=== PATIENT | male | born 1965 | race Caucasian/White ===

== ENCOUNTER 2020-05-22 10:20 | Inpatient (IN) ==
--- NOTE | 2020-05-22 10:27 | Emergency Department Note ---
Impression & Plan Chest pain, Syncope, Bradycardia ED Provider Note NAME: NISHA [id number] TERENCE AGE: 54 SEX: M : 1965 ARRIVES VIA: Ambulance INFORMANT: Patient, ED PROVIDER(S): Derik Gipson DO CHIEF COMPLAINT: Chest pain HPI: The patient is a 54-year-old male who has a history of coronary artery bypass grafting as well as LA in the past who presented to the emergency department for an evaluation of chest pain. The patient describes chest pain as well as near syncope. This occurred this morning. He was given aspirin and nitroglycerin prior to arrival. He is currently at [facility] and presented to the emergency department via ambulance. The patient does have a history of chronic back pain. He states that he had a syncopal episode 2 days ago. He denies having any nausea or vomiting. He denies having any lower extre mity swelling. The patient at this time has no chest pain but does complain of his chronic back pain and is unsure if this is because of the syncopal episode. The patient states otherwise he has been compliant with his outpatient medication regimen. He denies having any fevers. He has no cough. ROS: See above HPI for pertinent positives & negatives. A total of 10 systems reviewed and were otherwise negative. PAST MEDICAL HISTORY: See Below PAST SURGICAL HISTORY: See Below FAMILY HISTORY: See Below SOCIAL HISTORY: See Below HOME MEDICATIONS: See Below ALLERGIES: See Below VITALS: See Below PHYSICAL EXAMINATION: GENERAL: Patient is awake alert in no acute distress patient is resting comfortably and showing no signs of anxiety EYES: The conjunctivae are clear. The pupils are round and reactive. EARS, NOSE, MOUTH AND THROAT: The nose is without any evidence of any deformity. NECK: The neck is nontender and supple. RESPIRATORY: Normal respiratory effort is noted there is no evidence of wheezing rhonchi or rales CARDIOVASCULAR: Regular rate and rhythm noted there no murmurs rubs or gallops normal S1 normal S2. GASTROINTESTINAL: The abdomen is soft. Abdomen is nontender. MUSCULOSKELETAL/EXTREMITIES: There is no evidence of gross deformity full range of motion is noted in the hips and shoulders. SKIN: There is no obvious evidence of any rash. There are no petechiae, pallor or cyanosis noted. NEUROLOGIC: Patient is awake alert and oriented x3 strength is symmetric patellar reflexes are 2+ bilaterally MEDICAL DECISION MAKING: The patient is a 54-year-old male who presented to the emergency department for an evaluation of chest pain. The patient describes anterior chest pain. This was associated with syncope a few days ago. The patient does have a history of pulmonary venous thromboembolic disease as well as coronary artery disease and bypass. I discussed the patient's laboratory and radiographic studies with him. His EKG shows no acute ischemic changes but we have no previous for comparison. His troponin is negative despite having ongoing symptoms since this morning. Because the patient has no direct follow-up I discussed this case with the on- call [facility] hospitalist. They will evaluate the patient in the emergency department for further management and disposition. Triage Nursing notes reviewed. Prior medical records reviewed Vital Signs: reviewed and remarkable for bradycardia Differential diagnosis: Cardiac ischemia, aortic dissection, pulmonary embolism, pneumothorax, pneumonia, pericarditis, myocarditis, esophageal rupture, GERD, cholecystitis, pancreatitis, musculoskeletal, as well as other pathologies. ER treatment provided: See below Diagnostics interpreted by me: ECG: EKG was obtained in the emergency department. My interpretation is sinus bradycardia at 44 bpm. There is no ectopy. There were no acute ST segment abnormalities noted. There is no previous tracing for comparison. Cardiac Monitoring: An order was placed for continuous cardiac monitoring. The monitor shows a rate of 52 bpm with sinus bradycardia rhythm. Laboratory studies: As stated above and show below. Imaging studies: See below Consultation(s): 1140: I discussed this case with Dr. Leung who is on-call for the [facility]. They will evaluate the patient in the emergency department for further management and disposition. ] Past Med/Surg History Medical History (Updated 05/22/20 @ 12:05 by Derik Gipson DO) Atrial fibrillation History of heart attack Hypertension Injury of lumbar spine Surgical History (Updated 05/22/20 @ 12:01 by Steffen Leung) Hx of CABG 4-vessel; [place]; Sep 2019 Social History Smoking Status: Former smoker Preferred Language: Hebrew Feels Safe at Home: Yes Allergies Allergies Allergy/AdvReac Type Severity Reaction Status Date / Time No Known Allergies Allergy Unverified 05/22/20 11:23 Home Meds Home Medications Medication Instructions Recorded Confirmed albuterol sulfate [Ventolin HFA] 2 puff INHALATION QID PRN 05/22/20 05/22/20 aspirin 81 mg PO QAM 05/22/20 05/22/20 furosemide [Lasix] 20 mg PO QAM 05/22/20 05/22/20 lisinopril 2.5 mg PO QAM 05/22/20 05/22/20 metoprolol tartrate [Lopressor] 50 mg PO BID 05/22/20 05/22/20 potassium chloride 20 meq PO DAILY 05/22/20 05/22/20 rivaroxaban [Xarelto] 20 mg PO QAM 05/22/20 05/22/20 Results & Data (ED) Vital Signs Vital Signs - 24 hr 05/22/20 10:23 05/22/20 10:36 05/22/20 10:42 Temperature 36.6 C Temperature Source Oral Pulse Rate 47 L 48 L 42 L Pulse Rate from SpO2 Sensor 45 L Respiratory Rate 16 18 16 Respiratory Effort / Characteristics Non-Labored Spontaneous Blood Pressure 119/61 119/61 Blood Pressure Mean 66 80 Blood Pressure Position Lying Pulse Oximetry 98 98 98 Oxygen Delivery Method Room Air Room Air Sepsis Recent Fever Within 48 Hours No Sepsis New/Unexplained Change in Mental Status No Sepsis Action Taken by Nursing No Action Required Home Medications Current Medication List: was personally reviewed by me Laboratory Data Attestation: I reviewed the patient's lab results. Result diagrams: 05/22/20 10:30 05/22/20 10:30 Lab Results 05/22/20 05/22/20 05/22/20 Range/Units 10:30 10:30 10:30 WBC 7.17 (4.8-10.8) K/uL RBC 4.56 L (4.7-6.1) M/uL Hgb 14.1 (14.0-18.0) g/dL Hct 43.2 (42-52) % MCV 94.7 (80-100) fL MCH 30.9 (25-34) pg MCHC 32.6 (32-36) g/dL RDW Std Deviation 44.1 (36.4-46.3) fL RDW Coeff of Katherine 12.7 (11.5-14.5) % Plt Count 341 (130-400) K/uL MPV 9.3 (7.4-10.4) fL Immature Gran % (Auto) 0.0 % Neut % (Auto) 68.0 % Lymph % (Auto) 22.9 % [place] % (Auto) 7.0 % Eos % (Auto) 1.7 % Baso % (Auto) 0.4 % Neut # (Auto) 4.88 (1.4-6.5) K/uL Lymph # (Auto) 1.64 (1.2-3.4) K/uL [place] # (Auto) 0.50 (0.11-0.59) K/uL Eos # (Auto) 0.12 (0-0.5) K/uL Baso # (Auto) 0.03 (0-0.2) K/uL Immature Gran # (Auto) 0.00 (0.00-0.02) K/uL PT 14.8 H (9.0-12.0) Seconds INR 1.4 H (0.9-1.1) APTT 39.7 H (21.0-31.0) Seconds PTT Ratio 1.4 D-Dimer < 190 (0-500) ug/L FEU Sodium 141 (136-145) mmol/L Potassium 4.4 (3.5-5.1) mmol/L Chloride 108 H (98-107) mmol/L Carbon Dioxide 30 (21-32) mmol/L Anion Gap 3.0 (3-11) BUN 12 (7-18) mg/dl Creatinine 0.97 (0.6-1.4) mg/dl Est Cr Clr Drug Dosing 111.9 ml/min Est GFR ( Amer) 101.4 Est GFR (Non-Af Amer) 87.5 BUN/Creatinine Ratio 12.6 (10-20) Glucose 95 (70-99) mg/dl Calcium 8.8 (8.5-10.1) mg/dl Total Bilirubin 0.5 (0.2-1) mg/dl AST 22 (15-37) U/L ALT 27 (12-78) U/L Alkaline Phosphatase 98 (45-117) U/L Troponin I < 0.015 (0-0.045) ng/ml Total Protein 6.7 (6.4-8.2) gm/dl Albumin 3.4 (3.4-5.0) gm/dl Globulin 3.3 (2.5-4.0) gm/dl Albumin/Globulin Ratio 1.0 (0.9-2) Lipase 78 (73-393) U/L Specimen Hemolysis Administered Medications Discontinued Medications Sodium Chloride (Nss) 500 mls @ 999 mls/hr IV .Q31M POPEYE Stop: 05/22/20 11:00 Last Infusion: 05/22/20 11:21 Dose: 0 mls/hr Documented by: [id number] Admin: 05/22/20 10:45 Dose: 999 mls/hr Documented by: [id number] Imaging Data Radiologist's Impression: XR chest 1V portable CLINICAL HISTORY: Atypical chest pain COMPARISON STUDY: No previous studies for comparison. FINDINGS: The heart is normal in size. There are postsurgical changes of a midline sternotomy. There is a left atrial band occluder device present. There is a metallic density projected over the mid dorsal spine, likely related to spinal hardware. There is no failure. There is no focal pulmonary consolidation. There are minor left basilar atelectatic changes. There is minimal blunting of the left lateral costophrenic angle[ IMPRESSION: 1. No evidence of failure. No evidence of focal pulmonary consolidation. Equivocal trace left pleural effusion. ACT 112: Negative or not required by law. Electronically signed by: Billy Lubin M.D. 05/22/2020 11:02 AM Dictated: 05/22/20 110 Transcribed: 05/22/201101 Blood Pressure Blood Pressure Findings: Normal blood pressure Discharge Plan Visit Data Chief Complaint: Chest Pain Stated Complaint: chest pain ED Provider: Derik Gipson Discharge Problem: Chest pain, Syncope, Bradycardia Patient Disposition: Being Evaluated by Hospitalist Condition: Good Forms Stand Alone Forms: My [facility] Prescriptions Prescriptions: No Action potassium chloride 10 mEq Tablet Extended Release 20 meq PO DAILY RF: 0 aspirin 81 mg Tablet,Delayed Release (Dr/Ec) 81 mg PO QAM RF: 0 metoprolol tartrate [Lopressor] 50 mg Tablet 50 mg PO BID RF: 0 furosemide [Lasix] 20 mg Tablet 20 mg PO QAM RF: 0 albuterol sulfate [Ventolin HFA] 90 mcg/actuation Hfa Aerosol Inhaler 2 puff INHALATION QID PRN (Reason: Shortness Of Breath) RF: 0 lisinopril 2.5 mg Tablet 2.5 mg PO QAM RF: 0 Xarelto 20 mg Tablet 20 mg PO QAM RF: 0 Referrals Referrals: [place] [Primary Care Provider] -
[2020-05-22] MEDS ORDERED: SODIUM CHLORIDE 0.9% 500 ML IV SCH (10:30)
[2020-05-22 10:45] LABS: Basophils # (auto) 0.03 K/uL (0-0.2); Basophils % (auto) 0.4 %; Eosinophils # (auto) 0.12 K/uL (0-0.5); Eosinophils % (auto) 1.7 %; Hematocrit (blood only) 43.2 % (42-52); Hemoglobin 14.1 g/dL (14.0-18.0); Lymphocytes # (auto) 1.64 K/uL (1.2-3.4); Lymphocytes % (auto) 22.9 %; Mean Corpuscular Hemoglobin 30.9 pg (25-34); Mean Corpuscular Hgb Conc 32.6 g/dL (32-36); Mean Corpuscular Volume 94.7 fL (80-100); Mean Platelet Volume 9.3 fL (7.4-10.4); Neutrophils # (auto) 4.88 K/uL (1.4-6.5); Platelet Count 341 K/uL (130-400); RDW Coefficient of Variation 12.7 % (11.5-14.5); RDW Standard Deviation 44.1 fL (36.4-46.3); Red Blood Count 4.56 M/uL (4.7-6.1); White Blood Count 7.17 K/uL (4.8-10.8)
[2020-05-22 10:59] LABS: D Dimer < 190 ug/L FEU (0-500); INR 1.4 (0.9-1.1); Partial Thromboplastin Ratio 1.4; Partial Thromboplastin Time 39.7 Seconds (21.0-31.0); Prothrombin Time 14.8 Seconds (9.0-12.0)
[2020-05-22 11:04] LABS: Alanine Aminotransferase 27 U/L (12-78); Albumin Level 3.4 gm/dl (3.4-5.0); Aspartate Aminotransferase 22 U/L (15-37); BUN Creatinine Ratio 12.6 (10-20); Blood Urea Nitrogen 12 mg/dl (7-18); Calcium 8.8 mg/dl (8.5-10.1); Carbon Dioxide 30 mmol/L (21-32); Chloride 108 mmol/L (98-107); Creatinine Clr Calc Pharmacy 111.9 ml/min; Est GFR (African American) 101.4; Est GFR (Non-African American) 87.5; Glucose 95 mg/dl (70-99); Lipase 78 U/L (73-393); Potassium 4.4 mmol/L (3.5-5.1); Sodium 141 mmol/L (136-145)
--- NOTE | 2020-05-22 11:04 | XRay Report ---
XR chest 1V portable CLINICAL HISTORY: Atypical chest pain COMPARISON STUDY: No previous studies for comparison. FINDINGS: The heart is normal in size. There are postsurgical changes of a midline sternotomy. There is a left atrial band occluder device present. There is a metallic density projected over the mid jazz rui spine, likely related to spinal hardware. There is no failure. There is no focal pulmonary consol idation. There are minor left basilar atelectatic changes. There is minimal blunting of the left late ral costophrenic angle[ IMPRESSION: 1. No evidence of failure. No evidence of focal pulmonary consolidation. Equivocal trace left pleural effusion. ACT 112: Negative or not required by law. Electronically signed by: Billy Lubin M.D. 05/22/2020 11:02 AM
[2020-05-22 11:22] LABS: Alkaline Phosphatase 98 U/L (45-117); Bilirubin,Total 0.5 mg/dl (0.2-1); Globulin 3.3 gm/dl (2.5-4.0); Total Protein 6.7 gm/dl (6.4-8.2); Troponin I < 0.015 ng/ml (0-0.045)
--- NOTE | 2020-05-22 12:14 | History & Physical Report ---
Date of Service May 22, 2020 Assessment & Plan (1) Syncope: Patient with numerous episodes of near-syncope or syncope. He has had event monitors for such with documented episodes of a.fib as well as pauses. He underwent cardioversion in [place] for a.fib a few months ago. Pacemaker was discussed in the past. He has marked sinus bradycardia at time of presentation today. Will hold his beta macy, check TSH, and obtain echo. Place on telemetry. Obtain [facility] cardiology consultation for their opinion. Check carotid duplex study for completeness. Check orthostatic BPs. (2) Chest pain: Description of his chest discomfort is atypical for ischemic chest pain. He describes the chest discomfort in the context of having fluttering/palpitations. His EKG and troponin are negative at time of admission. Will obtain serial cardiac enzymes, check echo, and place on telemetry. D-dimer is normal and patient has had "forced" compliance with xarelto (being in [facility]) thus VTE is unlikely. (3) Bradycardia: Sinus. Likely that beta macy is contributing. HOLD metoprolol. Check TSH. Place on monitors - observe for pauses, etc. (4) Atrial fibrillation: History of such. s/p MAZE procedure early 2019. s/p elective cardioversion summer 2019 in [place]. Is in sinus rhythm at time of admission today. Holding beta macy due to bradycardia. Cont xarelto. Telemetry monitoring. (5) Hypertension: Cont OCHOA. Hold BB. Cont lasix. (6) History of heart attack: multiple events dating back 10-15 years. s/p CABG early 2019 in [place], [place]. ER attempted to obtain records from the hospital in [place] without success. That hospital ([facility]) stated there was no record of him being in their hospital. Cont asa. Cont OCHOA. Check lipids in am - strongly consider high-intensity statin. (7) Sinus pause: Patient reports documentation of these in the past year but uncertain why permanent pacemaker was not placed. Suspect that his frequent moving and traveling has not allowed optimal care of his cardiac issues. Due to bradycardia we will HOLD beta macy, obtain cardiology consult, check TSH, and place on monitors. (8) H/O maze procedure: early 2019 (9) History of cardiac arrest: (10) Hx of CABG: early 2019 4-vessel (11) History of pulmonary embolus (PE): noted cont xarelto 20mg daily (12) Shelter as place of occurrence of external cause: currently incarcerated at [facility] for DUI (meth use? other?) (13) DVT prophylaxis: xarelto daily History of Present Illness Chief Complaint: dizziness, near-syncope, chest pain Primary Care Provider: [facility] 54yo male with CAD s/p CABG in 2019, PAF s/p MAZE procedure in 2019, and HTN who presents from [facility] with near-syncopal/syncopal episode this am at the [facility]. Also, about 2 days ago, he had a full syncopal episode while he went from a seated to standing position. He is uncertain how long he had loss of consciousness with either event. He noted palpitations/fluttering of the heart prior to the event this am. He had a minimal amount of dull pain over the left chest with it. He was given aspirin and nitro SL this am at the [facility] with improved chest pain. This am when he felt poorly/dizzy he was taken to the [facility]. There was questionable loss of consciousness while he was on the [facility] stretcher. The nurses told him there were "pauses" / irregular heart beating when they lis tened but NOT a.fib. When patient arrived at [facility] he was in sinus bradycardia. Patient states he had 4-vessel CABG with MAZE procedure at [facility] in [facility] in early 2019. He was in [place] because [facility] while he was living [facility] [place] - that "[place] is the best place to have it [CABG] done." While hospitalized he was told he was having pauses in the setting of a.fib? and a pacer/ICD was recommended but instead he was sent home with what sounds like a LifeVest (?). He did not mention v-tach to me during the admission assessment, however. He admits to being noncompliant with the LifeVest following discharge. He ultimately moved from [place] to [place], [place]. He stated "I always loved [place] so that's why I went there." When he established with a [employer] in [place] he was in a.fib and he underwent elective cardioversion. He wore a 2-week event monitor prior to the cardioversion. He had frequent a.fib episodes according to the [employer]. The [employer] in [place] is through the [place] system ([facility]?). Since the cardioversion several months he has had 8-10 episodes of near-syncope or syncope. Allergies Allergy/AdvReac Type Severity Reaction Status Date / Time No Known Allergies Allergy Unverified 05/22/20 11:23 Home Medications Home Medications Medication Instructions Recorded Confirmed Type albuterol sulfate [Ventolin HFA] 2 puff INHALATION QID PRN 05/22/20 05/22/20 History aspirin 81 mg PO QAM 05/22/20 05/22/20 History furosemide [Lasix] 20 mg PO QAM 05/22/20 05/22/20 History lisinopril 2.5 mg PO QAM 05/22/20 05/22/20 History metoprolol tartrate [Lopressor] 50 mg PO BID 05/22/20 05/22/20 History potassium chloride 20 meq PO DAILY 05/22/20 05/22/20 History rivaroxaban [Xarelto] 20 mg PO QAM 05/22/20 05/22/20 History Past Med/Surg History Medical History Atrial fibrillation Degenerative joint disease (DJD) of lumbar spine History of cardiac arrest 2006 - History of heart attack x 5; 2006 s/p 2 stents; 2006 (2 weeks after stents); 2008, 2011, 2019? 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 Beliefs That Will Affect Care: None Current Living Situation: Other Current Living Situation Comment: Shelter Other Information That Helps Us Care for You: No Feels Safe at Home: Yes Safety Concerns: Feels Safe At This Time Assistive Devices: None Review of Systems Constitutional: no fever and no anorexia Eyes: + worsening vision (during the near-syncope spells ) Ear, Nose, Mouth, Throat: no nasal congestion, no sore throat and no dysphagia Respiratory: + dyspnea on exertion (since his surgery ); no cough and no dyspnea Cardiovascular: as per Subjective / HPI, + chest pain, + palpitations, + lightheadedness and + syncope Gastrointestinal: + nausea (with the episode at [facility] today ); no abdominal pain, no blood in stools and no melena Genitourinary: no dysuria Musculoskeletal: + back pain (chronic ) Integumentary: no rash Neurologic: + paresthesia (hands - from neck issues) Psychiatric: no depression Endocrine: no diabetes Physical Exam Constitutional: well developed and well nourished; no acute distress and no altered mental status Eyes: PERRL ENMT: external ear and nose normal, oropharynx normal Neck: trachea midline, no thyromegaly Respiratory: normal respiratory effort, lungs clear to auscultation Cardiovascular: Rate/Rhythm: regular rhythm and + bradycardic Heart Sounds: normal S1 and normal S2; no murmur Vessels: posterior tibial pulses present and dorsalis pedis pulses present; no JVD Extremities: no edema Chest (Breasts): Additional Comments: vertical scar through middle of sternum Gastrointestinal (Abdomen): normal bowel sounds, soft, nontender, no hepatosplenomegaly Musculoskeletal: no cyanosis or clubbing, extremities motor strength 5/5 Skin: no rashes, warm and dry Neurologic: deep tendon reflexes 2+ bilaterally and moves all extremities Psychiatric: Orientation: alert and oriented x 3 Lymphatic: no cervical lymphadenopathy Results & Data Results & Data ([facility]) Vital Signs (Past 12 Hours) Vital Signs Temp Pulse Resp BP Pulse Ox 05/22/20 10:42 42 L 16 98 05/22/20 10:36 36.6 C 48 L 18 119/61 98 05/22/20 10:23 47 L 16 119/61 98 Laboratory Results Laboratory Results - last 24 hr 05/22/20 05/22/20 05/22/20 10:30 10:30 10:30 WBC 7.17 RBC 4.56 L Hgb 14.1 Hct 43.2 MCV 94.7 MCH 30.9 MCHC 32.6 RDW Std Deviation 44.1 RDW Coeff of Katherine 12.7 Plt Count 341 MPV 9.3 Immature Gran % (Auto) 0.0 Neut % (Auto) 68.0 Lymph % (Auto) 22.9 [place] % (Auto) 7.0 Eos % (Auto) 1.7 Baso % (Auto) 0.4 Neut # (Auto) 4.88 Lymph # (Auto) 1.64 [place] # (Auto) 0.50 Eos # (Auto) 0.12 Baso # (Auto) 0.03 Immature Gran # (Auto) 0.00 PT 14.8 H INR 1.4 H APTT 39.7 H PTT Ratio 1.4 D-Dimer < 190 Sodium 141 Potassium 4.4 Chloride 108 H Carbon Dioxide 30 Anion Gap 3.0 BUN 12 Creatinine 0.97 Est Cr Clr Drug Dosing 111.9 Est GFR ( Amer) 101.4 Est GFR (Non-Af Amer) 87.5 BUN/Creatinine Ratio 12.6 Glucose 95 Calcium 8.8 Total Bilirubin 0.5 AST 22 ALT 27 Alkaline Phosphatase 98 Troponin I < 0.015 Total Protein 6.7 Albumin 3.4 Globulin 3.3 Albumin/Globulin Ratio 1.0 Lipase 78 Specimen Hemolysis Diagnostic Findings EKG - my reading - sinus rosario, RBBB, NS ST changes inferior leads CXR - no infiltrates Code Status & VTE Plan Code Status full VTE Prophylaxis Plan VTE Prophylaxis will be ordered: Yes PG Care Time/CCT Total # of Minutes Spent Total Time Spent with Patient: Total time spent is greater than 50% in coordination of care (as documented) at patient's floor/unit and/or counseling patient: Coding Level of Care Code 18609 OBS Care - Level 3 Diagnoses Syncope R55 Syncope type: unspecified Chest pain R07.9 Chest pain type: unspecified Bradycardia R00.1 Atrial fibrillation I48.0 Atrial fibrillation type: paroxysmal Hypertension I10 Hypertension type: essential hypertension History of heart attack I25.2 Sinus pause I45.5 H/O maze procedure Z98.890 History of cardiac arrest Z86.74 Hx of CABG Z95.1 History of pulmonary embolus (PE) Z86.[address] of occurrence of external cause Y92.149 DVT prophylaxis Z29.9 (1) Atrial fibrillation Atrial fibrillation type: paroxysmal Qualified Code(s): I48.0 - Paroxysmal atrial fibrillation (2) Syncope Syncope type: unspecified Qualified Code(s): R55 - Syncope and collapse (3) Chest pain Chest pain type: unspecified Qualified Code(s): R07.9 - Chest pain, unspecified (4) Hypertension Hypertension type: essential hypertension Qualified Code(s): I10 - Essential (primary) hypertension
[2020-05-22] MEDS ORDERED: ALBUTEROL HFA 8 GM INHALER INH PRN (14:34)
[2020-05-22] MEDS ORDERED: NITROGLYCERIN SL 0.4 MG/TAB TAB SL PRN (14:34)
[2020-05-22] MEDS ORDERED: ACETAMINOPHEN 325 MG TAB PO PRN (14:34)
[2020-05-22] MEDS ORDERED: ONDANSETRON INJ 2 MG/ML 2 ML VIAL IV PRN (14:34)
--- NOTE | 2020-05-22 14:46 | XCELERA ---
[id number]
[2020-05-22 15:03] LABS: Magnesium 2.2 mg/dl (1.8-2.4); Thyroid Stimulating Hormone 1.69 uIu/ml (0.300-4.500)
--- NOTE | 2020-05-22 16:04 | Ultrasound Report ---
CAROTID ARTERY ULTRASOUND CLINICAL HISTORY: recurrent syncope; eval ICA stenosis COMPARISON STUDY: None. TECHNIQUE: Real-time, grayscale, and color Doppler sonography of the carotid and vertebral arteries w as performed. Images were viewed in the transverse and longitudinal planes. FINDINGS: There is mild atherosclerotic plaque. Velocity measurements are listed below. COMMON CAROTID PEAK SYSTOLIC VELOCITY (CM/S): RIGHT 101 LEFT 90 ICA PEAK SYSTOLIC VELOCITY (CM/S): RIGHT 83 LEFT 100 Systolic ratios between internal to common carotid arteries are normal. Antegrade flow is seen in the vertebral arteries. The external carotid arteries are patent. Blood pressure in the right arm measured 124/57. Blood pressure in the left arm measured 128/53. IMPRESSION: Mild atherosclerotic plaque without evidence for a hemodynamically significant stenosis. ACT 112: Negative or not required by law. Electronically signed by: Austin Bernal M.D. 05/22/2020 4:03 PM
--- NOTE | 2020-05-22 16:24 | Cardiology Consultation ---
Date of Consultation May 22, 2020 Assessment & Plan (1) Syncope: Patient appear to have had witnessed syncope. It seems that he has had similar episodes in the past and has undergone outpatient monitoring. Will attempt to obtain the records from [place] with respect to his recent monitoring. Think this several possible etiologies for his events. Clearly sinus arrest or symptomatic bradycardia would cause his symptoms. He may also be having conversion pauses. He is currently taking metoprolol and this can be held. It is very possible that heals on metoprolol for tachy-rosario syndrome or elevated ventricular rates during episodes of atrial fibrillation. Any of the circumstances would warrant implantation of a permanent pacemaker. He also has a history of ischemic heart disease. Reportedly has a history of cardiac arrest in the setting of an MA and was prescribed a life vest at 1 point. He describes a fluttering sensation associated with these episodes. It is possible that he has ventricular arrhythmias associated with syncope. Is preserved LV systolic function puts him in a favorable category. Based on his normal LV function I do not believe he requires electrophysiologic testing for VT. At this point I would agree with telemetry monitoring. Will attempt to obtain the results of his prior outpatient monitoring. We will hold his metoprolol. (2) Atrial fibrillation: He appears to have a long history of atrial fibrillation. He reports being cardioverted a couple of months ago. He may also have undergone a Maze procedure. He did undergo occlusion of left atrial appendage based on his x- ray. Whether he has a history of tachy-rosario syndrome is unclear. He is unlikely to maintain sinus rhythm indefinitely. At this point I think we will hold his metoprolol, monitor him for atrial fibrillation and associated conversion pauses he continue his anticoagulation (3) CAD (coronary artery disease): He has a long history of coronary artery disease in both percutaneous and surgical revascularization. No current symptoms suggestive of angina or coronary insufficiency. He appears to be doing quite well in cardiac rehab. Given his history of myocardial infarction he would benefit from continued use of metoprolol, but I think this can be held temporarily. He will continue daily aspirin and lisinopril. He should be on high-dose statin therapy, either atorvastatin or rosuvastatin (4) Shortness of breath: This is a curious symptom. May be related to primary lung disease. He states that he has had some shortness of breath for an extended period of time. This not appear to improve with revascularization. Is not appear to be related to pulmonary edema or angina. Does not reliably reproduced by any specific activity but does limit his activity at times. I think this is more likely a primary pulmonary process than diastolic failure or ischemia. History of Present Illness Reason for Consultation: Syncope, bradycardia Requesting Physician: Xochitl Attending Physician: Steffen Leung History of Present Illness The patient is a 54-year-old gentleman with a history of coronary artery disease and atrial fibrillation who is currently incarcerated. Patient been incarcerated for approximately 2 weeks. Several days ago and again today the patient had episodes of dizziness and witnessed syncope. Patient stated that 3 days ago while in his cell he found himself on the floor with a minor injury to his back. He believes this was a result of syncope. He cannot recall any spe cific activity leading up to the event. He did report a sense of a fluttering leading up to the event. He does not remember much else. Today he also noticed a fluttering. He had some associated dizziness was brought to the [facility] where apparently he was noted to lose consciousness briefly. The patient has an extensive past medical history. He reports having percutaneous intervention to his coronary arteries as remotely is 2006. He had frequent episodes of chest pain infrequent interventions until a bypass surgery the he reports being performed earlier this year in [facility]. He also reports having 10 years of atrial fibrillation. It seems that at the time of his bypass surgery he underwent a Maze procedure and left atrial appendage occlusion. Again, this is by report. He recently established with a b and b gang worker in [place]. He states that he was in atrial fibrillation and underwent a cardioversion. He believes this cardioversion has allowed him to maintain sinus rhythm for approximately 2 months. Due to episodes of dizziness and syncope previously he has worn outpatient monitors. He stated that at times he was told his heart stops for a few seconds. He reported "dying on the table during 1 of his remote heart attacks. He also appears to have been prescribed a LifeVest subsequent to his bypass surgery. Currently he is feeling well. He is not currently describing symptoms of dizziness. He has improved his activity over the past few months by participating in cardiac rehab. He does state that he frequently has SOB. This appears to refer to dyspnea on exertion. This occurs with moderate activity. Is not appear to be limiting when he is doing his cardiac rehab or other mild activities. Does not appear to involve orthopnea although lately he has had difficulty lying flat due to his sternotomy. No chest pain since his bypass surgery. Allergies Allergy/AdvReac Type Severity Reaction Status Date / Time No Known Allergies Allergy Unverified 05/22/20 11:23 Home Medications Home Medications Medication Instructions Recorded Confirmed Type albuterol sulfate [Ventolin HFA] 2 puff INHALATION QID PRN 05/22/20 05/22/20 History aspirin 81 mg PO QAM 05/22/20 05/22/20 History furosemide [Lasix] 20 mg PO QAM 05/22/20 05/22/20 History lisinopril 2.5 mg PO QAM 05/22/20 05/22/20 History metoprolol tartrate [Lopressor] 50 mg PO BID 05/22/20 05/22/20 History potassium chloride 20 meq PO DAILY 05/22/20 05/22/20 History rivaroxaban [Xarelto] 20 mg PO QAM 05/22/20 05/22/20 History Patient History Medical History Atrial fibrillation Degenerative joint disease (DJD) of lumbar spine History of cardiac arrest 2006 - History of heart attack x 5; 2006 s/p 2 stents; 2006 (2 weeks after stents); 2008, 2011, 2019? History of pulmonary embolus (PE) Hypertension Syncope Surgical History H/O maze procedure Sep 2019 Hx of CABG 4-vessel; [place]; Sep 2019 Family History Mother Coronary heart disease Father Hx of CABG Brother Coronary heart disease Social History Smoking Status: Former smoker Tobacco Type: Cigarettes packs per day: 1; Years Smoked: 20; Smoking End Date: 2017; Second Hand Exposure: No; Do You Dip or Chew Tobacco: No; Tobacco Cessation Education Requested by Patient: No Hx Alcohol Use: No Hx Substance Use: No Preferred Language: Mosotho Communication Ability: Effective Steel Molder Required: No Beliefs That Will Affect Care: None Current Living Situation: Other Current Living Situation Comment: Long-Term Other Information That Helps Us Care for You: No Feels Safe at Home: Yes Safety Concerns: Feels Safe At This Time Assistive Devices: None Review of Systems Review of Systems: All systems reviewed & are unremarkable except as noted in HPI & below Physical Exam Physical Exam: The patient is alert and oriented. Mood and affect appeared normal. He answered all questions appropriately. HEENT: Pupils are equal and reactive to light and accommodation. Extraocular movements are intact. The sclerae are anicteric. Neuro: Cranial nerves intact Neck: Patient's neck is supple. He has palpable carotid pulses bilaterally without bruits on auscultation. There is no evidence of jugular venous distention. The thyroid is not enlarged. Lungs: Clear to auscultation bilaterally. He has good air movement without use of accessory muscles. No rales wheezes or rhonchi. Cardiac: Heart demonstrates a slow rate and regular rhythm. Normal S1 and S2. No murmurs on examination. Pulses: The patient has palpable radial pulses bilaterally that are equal in intensity Extremities: There was no evidence of hypoperfusion. There is no cyanosis or clubbing. There is no edema. Skin: I did not appreciate any rashes on examination today. Results & Data ([facility]) Vital Signs (Past 12 Hours) Vital Signs Temp Pulse Pulse Resp BP BP Pulse Ox 05/22/20 14:45 37 C 50 L 16 128/53 L 97 05/22/20 13:09 61 20 117/64 99 05/22/20 13:07 46 L 16 112/47 L 98 05/22/20 13:06 43 L 16 124/57 L 98 05/22/20 13:00 46 L 17 101/42 L 98 05/22/20 12:30 45 L 18 150/68 H 99 05/22/20 12:00 45 L 17 140/72 100 05/22/20 11:30 43 L 16 122/61 98 05/22/20 11:00 43 L 16 112/46 L 98 05/22/20 10:59 41 L 15 104/49 L 98 05/22/20 10:42 42 L 16 98 05/22/20 10:36 36.6 C 48 L 18 119/61 98 05/22/20 10:23 47 L 16 119/61 98 Laboratory Results Abnormal Lab Results 05/22/20 05/22/20 05/22/20 10:30 10:30 10:30 WBC 7.17 RBC 4.56 L Hgb 14.1 Hct 43.2 MCV 94.7 MCH 30.9 MCHC 32.6 RDW Std Deviation 44.1 RDW Coeff of Katherine 12.7 Plt Count 341 MPV 9.3 Immature Gran % (Auto) 0.0 Neut % (Auto) 68.0 Lymph % (Auto) 22.9 Peach % (Auto) 7.0 Eos % (Auto) 1.7 Baso % (Auto) 0.4 Neut # (Auto) 4.88 Lymph # (Auto) 1.64 Peach # (Auto) 0.50 Eos # (Auto) 0.12 Baso # (Auto) 0.03 Immature Gran # (Auto) 0.00 PT 14.8 H INR 1.4 H APTT 39.7 H PTT Ratio 1.4 D-Dimer < 190 Sodium 141 Potassium 4.4 Chloride 108 H Carbon Dioxide 30 Anion Gap 3.0 BUN 12 Creatinine 0.97 Est Cr Clr Drug Dosing 111.9 Est GFR ( Amer) 101.4 Est GFR (Non-Af Amer) 87.5 BUN/Creatinine Ratio 12.6 Glucose 95 Calcium 8.8 Magnesium Total Bilirubin 0.5 AST 22 ALT 27 Alkaline Phosphatase 98 Troponin I < 0.015 Total Protein 6.7 Albumin 3.4 Globulin 3.3 Albumin/Globulin Ratio 1.0 Lipase 78 TSH Specimen Hemolysis 05/22/20 10:30 WBC RBC Hgb Hct MCV MCH MCHC RDW Std Deviation RDW Coeff of Katherine Plt Count MPV Immature Gran % (Auto) Neut % (Auto) Lymph % (Auto) Peach % (Auto) Eos % (Auto) Baso % (Auto) Neut # (Auto) Lymph # (Auto) Peach # (Auto) Eos # (Auto) Baso # (Auto) Immature Gran # (Auto) PT INR APTT PTT Ratio D-Dimer Sodium Potassium Chloride Carbon Dioxide Anion Gap BUN Creatinine Est Cr Clr Drug Dosing Est GFR ( Amer) Est GFR (Non-Af Amer) BUN/Creatinine Ratio Glucose Calcium Magnesium 2.2 Total Bilirubin AST ALT Alkaline Phosphatase Troponin I Total Protein Albumin Globulin Albumin/Globulin Ratio Lipase TSH 1.690 Specimen Hemolysis Diagnostic Findings Echocardiogram performed today revealed mild LVH with normal LV systolic function. Ejection fraction 60 65%. No significant valvular heart disease Carotid duplex was obtained this afternoon which revealed some mild carotid plaque. No obstructive disease Chest x-ray obtained at the time admission which did not reveal any acute cardiopulmonary process ECG Additional Comments: EKG demonstrated sinus bradycardia. PG Care Time/CCT Total # of Minutes Spent Total Time Spent with Patient: Total time spent is greater than 50% in coordination of care (as documented) at patient's floor/unit and/or counseling patient: Coding Level of Care Code 23293 Office/OBS Consult Lvl 4 Diagnoses Syncope R55 Syncope type: unspecified Atrial fibrillation I48.0 Atrial fibrillation type: paroxysmal CAD (coronary artery disease) I25.10 Shortness of breath R06.02 (1) Syncope Syncope type: unspecified Qualified Code(s): R55 - Syncope and collapse (2) Atrial fibrillation Atrial fibrillation type: paroxysmal Qualified Code(s): I48.0 - Paroxysmal atrial fibrillation
--- NOTE | 2020-05-22 17:06 | Electrocardiogram Report ---
Test Reason : Blood Pressure : / mmHG Vent. Rate : 044 BPM Atrial Rate : 044 BPM P-R Int : 148 ms QRS Dur : 084 ms QT Int : 452 ms P-R-T Axes : -24 042 023 degrees QTc Int : 386 ms Marked sinus bradycardia Abnormal ECG No previous ECGs available Confirmed by Clement Omer ([id number]) on 05/22/2020 5:06:26 PM Referred By: [facility] Confirmed By:Santosh Omer
[2020-05-23 07:59] LABS: Calcium 8.4 mg/dl (8.5-10.1); Creatinine Clr Calc Pharmacy 117.7 ml/min; Est GFR (African American) 108.1; Est GFR (Non-African American) 93.3
[2020-05-23] MEDS: RIVAROXABAN 20 MG TAB PO SCH (08:09)
[2020-05-23] MEDS: FUROSEMIDE 20 MG TAB PO SCH (08:10)
[2020-05-23] MEDS: ASPIRIN 81 MG ECTAB PO SCH (08:10)
[2020-05-23] MEDS: POTASSIUM CHLORIDE 20 MEQ TABCR PO SCH (08:10)
[2020-05-23 08:39] LABS: Estimated Average Glucose 120 mg/dl; Hemoglobin A1C 5.8 % (4.5-5.6)
--- NOTE | 2020-05-23 12:46 | Hospitalist Progress Note ---
Date of Service May 23, 2020 Assessment & Plan (1) Syncope: Patient is a 54y/o M with PMH significant for CAD, and atrial fibrillation, with two week history of worsening dizziness and two recent episodes of passing out and falls where he hit the back of his head leading to him being brought into the hospital. Syncope: - potential multifactorial; currently uncertain etiology with tachy-rosario vs orthostatic hypotension vs cerebral infarct vs demylenating disease - ordered brain MRI w/ & w/o - sinus bradycardia on EKG, and telemetry - holding home metoprolol at this time as potential bradycardia due to medications - Cardiology consulted: appreciate recommendations - can continue outpatient monitoring for continued bradycardia if this is able to be arranged while in current facility Atrial fibrillation: - hold home metoprolol 50mg BID, - continue systemic anticoagulation Bradycardia: - potential cause of syncopal episodes: see above Coronary artery disease: - reported extensive history of coronary artery disease - patient not on statin regimen at home - AM lipid profile unimpressive, but patient may benefit from treatment given history History of pulmonary embolus: - continue home Xarelto HTN: - continue lisinopril 2.5mg daily (2) Atrial fibrillation: (3) Bradycardia: (4) CAD (coronary artery disease): (5) History of pulmonary embolus (PE): Admission and Anticipated Discharge Date Admission Date: May 22, 2020 Supervising Physician Co-Signing Physician Notes I saw the patient with the resident physician and confirmed chavez portions of the history and examination. I also discussed the case with the health care consultant Upon examination today, the patient is resting supine in bed; no acute distress. He describes both dizziness with position changes (orthostatic) but also some dizziness at rest and with movement of the head or eye movements. On telemetry he certainly has episodes of bradycardia, dipping down to the high 30s low 40s overnight. Certainly this could be the cause of his symptoms, although he does report history of a prior CVA and some of his symptoms are not entirely consistent with orthostatic changes. Decrease beta-macy; monitor telemetry Efforts to obtain outside records with regards to prior cardiac history MRI of brain given patient's dizziness, recurrent falls. Subjective Patient describes that over the last several weeks to months he has noticed that these symptoms have continued to recur, and happen when gets up to do anything around the house and even when is sitting and just watching TV. Describes it as being a worsened ability to focus on the words and a difficulty with focusing on anything for more than a couple months. Review of Systems Review of Systems: All systems reviewed & are unremarkable except as noted in Subjective Physical Exam Constitutional: WD/WN, vitals as above Eyes: PERRL, conjunctivae normal, anicteric sclerae Respiratory: normal respiratory effort, lungs clear to auscultation Cardiovascular: Rate/Rhythm: regular rate and regular rhythm Heart Sounds: no gallop, no murmur and no cardiac rub Gastrointestinal (Abdomen): normal bowel sounds, soft, nontender, no hepatosplenomegaly Skin: no rashes, warm and dry Neurologic: patellar DTR's 2+ bilat, sensation intact and PERRL, EOMI, accommodation nl, no face palsy, no dysarthria Psychiatric: Orientation: alert and oriented x 3 Results & Data Results & Data ([facility]) Vital Signs (Past 12 Hours) Vital Signs Temp Pulse Resp BP Pulse Ox 05/23/20 11:34 36.6 C 62 18 127/70 95 05/23/20 08:10 36.7 C 55 L 18 126/74 96 05/23/20 03:43 36.7 C 61 18 119/67 98 Laboratory Results 05/23/20 05/23/20 05/23/20 Range/Units 15:55 11:24 07:42 Sodium (136-145) mmol/L Potassium (3.5-5.1) mmol/L Chloride (98-107) mmol/L Carbon Dioxide (21-32) mmol/L Anion Gap (3-11) BUN (7-18) mg/dl Creatinine (0.6-1.4) mg/dl Est Cr Clr Drug Dosing ml/min Est GFR ( Amer) Est GFR (Non-Af Amer) BUN/Creatinine Ratio (-20) Glucose (70-99) mg/dl POC Glucose 117 H 129 H 105 H (70-99) mg/dl Estimat Average Glucose mg/dl Hemoglobin A1c (4.5-5.6) % Calcium (8.5-10.1) mg/dl Troponin I (0-0.045) ng/ml Triglycerides (0-150) mg/dl Cholesterol (0-200) mg/dl LDL Cholesterol, Calc mg/dl VLDL Cholesterol, Calc mg/dl HDL Cholesterol mg/dl Cholesterol/HDL Ratio Hepatitis C Ab Screen (Neg) 05/23/20 05/23/20 05/23/20 Range/Units 06:38 06:38 06:38 Sodium 140 (136-145) mmol/L Potassium 4.0 (3.5-5.1) mmol/L Chloride 110 H (98-107) mmol/L Carbon Dioxide 27 (21-32) mmol/L Anion Gap 3.0 (3-11) BUN 11 (7-18) mg/dl Creatinine 0.92 (0.6-1.4) mg/dl Est Cr Clr Drug Dosing 117.7 ml/min Est GFR ( Amer) 108.1 Est GFR (Non-Af Amer) 93.3 BUN/Creatinine Ratio 12.0 (10-20) Glucose 96 (70-99) mg/dl POC Glucose (70-99) mg/dl Estimat Average Glucose 120 mg/dl Hemoglobin A1c 5.8 H (4.5-5.6) % Calcium 8.4 L (8.5-10.1) mg/dl Troponin I (0-0.045) ng/ml Triglycerides 108 (0-150) mg/dl Cholesterol 161 (0-200) mg/dl LDL Cholesterol, Calc 106 mg/dl VLDL Cholesterol, Calc 22 mg/dl HDL Cholesterol 33 mg/dl Cholesterol/HDL Ratio 5 Hepatitis C Ab Screen Neg (Neg) 05/22/20 05/22/20 Range/Units 22:47 21:24 Sodium (136-145) mmol/L Potassium (3.5-5.1) mmol/L Chloride (98-107) mmol/L Carbon Dioxide (21-32) mmol/L Anion Gap (3-11) BUN (7-18) mg/dl Creatinine (0.6-1.4) mg/dl Est Cr Clr Drug Dosing ml/min Est GFR ( Amer) Est GFR (Non-Af Amer) BUN/Creatinine Ratio (-20) Glucose (70-99) mg/dl POC Glucose 100 H (70-99) mg/dl Estimat Average Glucose mg/dl Hemoglobin A1c (4.5-5.6) % Calcium (8.5-10.1) mg/dl Troponin I < 0.015 (0-0.045) ng/ml Triglycerides (0-150) mg/dl Cholesterol (0-200) mg/dl LDL Cholesterol, Calc mg/dl VLDL Cholesterol, Calc mg/dl HDL Cholesterol mg/dl Cholesterol/HDL Ratio Hepatitis C Ab Screen (Neg) Medications Administered Current Inpatient Medications Acetaminophen (Acetaminophen 325 Mg Tab) 650 mg PO Q4H PRN PRN Reason: Pain or Fever Stop: 06/21/20 14:33 Albuterol (Albuterol Hfa 8 Gm Inhaler) 2 puffs INH QID PRN PRN Reason: Shortness Of Breath Stop: 06/21/20 14:33 Aspirin (Aspirin 81 Mg Ectab) 81 mg PO [facility] Stop: 06/22/20 08:59 Last Admin: 05/23/20 08:10 Dose: 81 mg Documented by: Furosemide (Furosemide 20 Mg Tab) 20 mg PO [facility] Stop: 06/22/20 08:59 Last Admin: 05/23/20 08:10 Dose: 20 mg Documented by: Lisinopril (Lisinopril 2.5 Mg Tab) 2.5 mg PO [facility] Stop: 06/22/20 08:59 Last Admin: 05/23/20 08:09 Dose: 2.5 mg Documented by: Nitroglycerin (Nitroglycerin Sl 0.4 Mg/Tab Tab) 0.4 mg SL UD PRN PRN Reason: Chest Pain Stop: 06/21/20 14:33 Ondansetron HCl (Ondansetron Inj 2 Mg/Ml 2 Ml Vial) 4 mg IV Q6H PRN PRN Reason: Nausea Stop: 06/21/20 14:33 Last Admin: 05/22/20 20:29 Dose: 4 mg Documented by: Potassium Chloride (Potassium Chloride 20 Meq Tabcr) 20 meq PO DAILY [facility] Stop: 06/22/20 08:59 Last Admin: 05/23/20 08:10 Dose: 20 meq Documented by: Rivaroxaban (Rivaroxaban 20 Mg Tab) [address] [facility] [place] Stop: 06/22/20 08:59 Last Admin: 05/23/20 08:09 Dose: 20 mg Documented by: Resident Activity Tracking Resident Involvement: Resident Care Provided Care Provided: Adult Hospital Medicine (1) Atrial fibrillation Atrial fibrillation type: paroxysmal Qualified Code(s): I48.0 - Paroxysmal atrial fibrillation (2) Syncope Syncope type: unspecified Qualified Code(s): R55 - Syncope and collapse
--- NOTE | 2020-05-23 14:01 | Cardiology Progress Note ---
Date of Service May 23, 2020 Assessment & Plan (1) Syncope: No additional episodes. As noted previously this could be related to a primary bradycardia or even transient tachycardia. I do suspect he has some form cardiac arrhythmia likely responsible for his symptoms. However, do not be lieve he requires continued inpatient monitoring. Outpatient event monitoring should be sufficient. If he can return to his unit with an outpatient monitor that would be ideal. Alternatively an implantable loop recorder could be considered although I think we would have trouble monitoring this remotely at the facility. Given his preserved LV systolic function I think he is low risk for malignant ventricular arrhythmias. He has also had recent revascularization without evidence of ischemic heart disease clinically. (2) Atrial fibrillation: Sinus rhythm here. 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 He should continue systemic anticoagulation. I think we can return him to metoprolol 25 mg twice daily which is half of his usual dose. This could attenuate Rosario arrhythmias which have precipitated his symptoms. May provide some element of rate control should he return to atrial fibrillation. (3) CAD (coronary artery disease): No current symptoms of coronary insufficiency. (4) Shortness of breath: None this morning. Admission and Anticipated Discharge Date Admission Date: May 22, 2020 Subjective This morning patient is feeling well. He did have difficulty sleeping due to changes in his environment. He did report some vertigo. However he has not really been out of better ambulatory. Did not report any additional episodes of syncope or presyncope. No sense of palpitation. Review of Systems Review of Systems: Per HPI Physical Exam Physical Exam: The patient is alert and oriented. Mood and affect appeared normal. He answered all questions appropriately. HEENT: Pupils are equal and reactive to light and accommodation. Extraocular movements are intact. The sclerae are anicteric. Neuro: Cranial nerves intact Lungs: Clear to auscultation bilaterally. He has good air movement without use of accessory muscles. No rales wheezes or rhonchi. Cardiac: Heart demonstrates a slow rate and regular rhythm. Normal S1 and S2. No murmurs on examination. Pulses: The patient has palpable radial pulses bilaterally that are equal in intensity Extremities: There was no evidence of hypoperfusion. There is no cyanosis or clubbing. There is no edema. Skin: I did not appreciate any rashes on examination today. Results & Data ([facility]) Vital Signs (Past 12 Hours) Vital Signs Temp Pulse Resp BP Pulse Ox 05/23/20 11:34 36.6 C 62 18 127/70 95 05/23/20 08:10 36.7 C 55 L 18 126/74 96 05/23/20 03:43 36.7 C 61 18 119/67 98 Laboratory Results Abnormal Lab Results 05/22/20 05/22/20 05/22/20 10:30 15:15 16:21 Sodium Potassium Chloride Carbon Dioxide Anion Gap BUN Creatinine Est Cr Clr Drug Dosing Est GFR ( Amer) Est GFR (Non-Af Amer) BUN/Creatinine Ratio Glucose POC Glucose Estimat Average Glucose Hemoglobin A1c Calcium Magnesium 2.2 Troponin I < 0.015 Triglycerides Cholesterol LDL Cholesterol, Calc VLDL Cholesterol, Calc HDL Cholesterol Cholesterol/HDL Ratio TSH 1.690 Nasal Screen MRSA (PCR) Negative Hepatitis C Ab Screen 05/22/20 05/22/20 05/22/20 16:35 21:24 22:47 Sodium Potassium Chloride Carbon Dioxide Anion Gap BUN Creatinine Est Cr Clr Drug Dosing Est GFR ( Amer) Est GFR (Non-Af Amer) BUN/Creatinine Ratio Glucose POC Glucose 129 H 100 H Estimat Average Glucose Hemoglobin A1c Calcium Magnesium Troponin I < 0.015 Triglycerides Cholesterol LDL Cholesterol, Calc VLDL Cholesterol, Calc HDL Cholesterol Cholesterol/HDL Ratio TSH Nasal Screen MRSA (PCR) Hepatitis C Ab Screen 05/23/20 05/23/20 05/23/20 06:38 06:38 06:38 Sodium 140 Potassium 4.0 Chloride 110 H Carbon Dioxide 27 Anion Gap 3.0 BUN 11 Creatinine 0.92 Est Cr Clr Drug Dosing 117.7 Est GFR ( Amer) 108.1 Est GFR (Non-Af Amer) 93.3 BUN/Creatinine Ratio 12.0 Glucose 96 POC Glucose Estimat Average Glucose 120 Hemoglobin A1c 5.8 H Calcium 8.4 L Magnesium Troponin I Triglycerides 108 Cholesterol 161 LDL Cholesterol, Calc 106 VLDL Cholesterol, Calc 22 HDL Cholesterol 33 Cholesterol/HDL Ratio 5 TSH Nasal Screen MRSA (PCR) Hepatitis C Ab Screen Neg 05/23/20 05/23/20 07:42 11:24 Sodium Potassium Chloride Carbon Dioxide Anion Gap BUN Creatinine Est Cr Clr Drug Dosing Est GFR ( Amer) Est GFR (Non-Af Amer) BUN/Creatinine Ratio Glucose POC Glucose 105 H 129 H Estimat Average Glucose Hemoglobin A1c Calcium Magnesium Troponin I Triglycerides Cholesterol LDL Cholesterol, Calc VLDL Cholesterol, Calc HDL Cholesterol Cholesterol/HDL Ratio TSH Nasal Screen MRSA (PCR) Hepatitis C Ab Screen PG Care Time/CCT Total # of Minutes Spent Total Time Spent with Patient: Total time spent is greater than 50% in coordination of care (as documented) at patient's floor/unit and/or counseling patient: Coding Level of Care Code 59667 Subseq Obs Care Lvl 2 Diagnoses Syncope R55 Syncope type: unspecified Atrial fibrillation I48.0 Atrial fibrillation type: paroxysmal CAD (coronary artery disease) I25.10 Shortness of breath R06.02 (1) Syncope Syncope type: unspecified Qualified Code(s): R55 - Syncope and collapse (2) Atrial fibrillation Atrial fibrillation type: paroxysmal Qualified Code(s): I48.0 - Paroxysmal atrial fibrillation
--- NOTE | 2020-05-23 17:29 | Electrocardiogram Report ---
Test Reason : Blood Pressure : / mmHG Vent. Rate : 051 BPM Atrial Rate : 051 BPM P-R Int : 138 ms QRS Dur : 082 ms QT Int : 452 ms P-R-T Axes : 062 042 015 degrees QTc Int : 416 ms Sinus bradycardia Otherwise normal ECG When compared with ECG of 22-MAY-2020 10:24, No significant change was found Confirmed by Clement Omer ([id number]) on 05/23/2020 5:29:31 PM Referred By: [facility] Confirmed By:Santosh Omer
[2020-05-23] MEDS ORDERED: GADOBUTROL 65ML VIAL IV ONE (21:25)
[2020-05-23] MEDS: NICOTINE 21 MG/24 HR TDSY TD SCH (21:51)
[2020-05-23] MEDS: MELATONIN 3 MG TAB PO PRN (21:51)
--- NOTE | 2020-05-24 07:46 | Magnetic Resonance Report ---
MR brain wo/w con HISTORY: 54 years-old Male syncope acute syncope with migraine headaches. History of cardiac arrest. COMPARISON: None TECHNIQUE: Multiplanar multisequence MRI the brain was obtained both with and without the use of 10.5 mL Gadavist FINDINGS: Gas Manager localizer images demonstrate no gross extracranial abnormality. There is no restricted diffusio n to suggest acute or subacute infarct. Midline structures including the corpus callosum, brainstem, optic chiasm, pituitary and pineal glands appear unremarkable on the sagittal T1 series. No cerebella r tonsillar herniation. There is no acute intracranial hemorrhage, midline shift, abnormal extra axial collection, hydrocepha esdras or intracranial mass. There are several subcentimeter scattered foci (less than 10) of T2/FLAIR p rolongation noted within the subcortical white matter of the bilateral cerebral hemispheres. There is no abnormal intra-axial or extra-axial enhancement. Major arterial flow voids at the level the skull base are patent. The cerebral venous sinuses are patent. Mastoid air cells are clear. Minimal mucosa l thickening of the dependent left maxillary sinus. Skull, orbits and soft tissues are unremarkable. IMPRESSION: 1. No acute intracranial abnormality, specifically there is no evidence of acute or subacute infarct. 2. No abnormal enhancement. 3. Minimal scattered T2/FLAIR hyperintensities within the subcortical white matter of the bilateral c erebral hemispheres are suggestive of early chronic microvascular ischemic disease versus gliosis fro m chronic migraines. ACT 112: Negative or not required by law. The above report was generated using voice recognition software. It may contain grammatical, syntax o r spelling errors. Electronically signed by: Ba Balderas M.D. 05/24/2020 7:45 AM
[2020-05-24] MEDS: ASPIRIN 81 MG ECTAB PO SCH (08:30)
[2020-05-24] MEDS: FUROSEMIDE 20 MG TAB PO SCH (08:30)
[2020-05-24] MEDS: RIVAROXABAN 20 MG TAB PO SCH (08:30)
[2020-05-24] MEDS: POTASSIUM CHLORIDE 20 MEQ TABCR PO SCH (08:31)
[2020-05-24] MEDS: NICOTINE 21 MG/24 HR TDSY TD SCH (08:31)
[2020-05-24 08:34] LABS: Basophils # (auto) 0.05 K/uL (0-0.2); Basophils % (auto) 0.8 %; Eosinophils # (auto) 0.13 K/uL (0-0.5); Hematocrit (blood only) 44.3 % (42-52); Hemoglobin 15.1 g/dL (14.0-18.0); Immature Granulocytes # (auto) 0.01 K/uL (0.00-0.02); Immature Granulocytes % (auto) 0.2 %; Lymphocytes # (auto) 1.72 K/uL (1.2-3.4); Lymphocytes % (auto) 26.5 %; Mean Corpuscular Hemoglobin 31.7 pg (25-34); Mean Corpuscular Hgb Conc 34.1 g/dL (32-36); Mean Corpuscular Volume 93.1 fL (80-100); Mean Platelet Volume 9.3 fL (7.4-10.4); Monocytes # (auto) 0.43 K/uL (0.11-0.59); Monocytes % (auto) 6.6 %; Neutrophils # (auto) 4.15 K/uL (1.4-6.5); Neutrophils % (auto) 63.9 %; Platelet Count 325 K/uL (130-400); RDW Coefficient of Variation 12.4 % (11.5-14.5); RDW Standard Deviation 42.4 fL (36.4-46.3); Red Blood Count 4.76 M/uL (4.7-6.1); White Blood Count 6.49 K/uL (4.8-10.8)
[2020-05-24 09:10] LABS: Calcium 9.5 mg/dl (8.5-10.1); Creatinine Clr Calc Pharmacy 117.5 ml/min; Est GFR (African American) 108.1; Est GFR (Non-African American) 93.3
--- NOTE | 2020-05-24 10:16 | Hospitalist Progress Note ---
Date of Service May 24, 2020 Assessment & Plan (1) Syncope: Patient is a 54y/o M with PMH significant for CAD, and atrial fibrillation, with two week history of worsening dizziness and two recent episodes of passing out and falls where he hit the back of his head leading to him being brought into the hospital. Syncope: - potentially multifactorial - uncertain etiology with potential sources being: tachy-rosario vs orthostatic hypotension vs neurologic component - Brain MRI w/ & w/o demonstrated: 1. No acute intracranial abnormality, specifically there is no evidence of acute or subacute infarct. 2. No abnormal enhancement. 3. Minimal scattered T2/FLAIR hyperintensities within the subcortical white matter of the bilateral cerebral hemispheres are suggestive of early chronic microvascular ischemic disease versus gliosis from chronic migraines. - sinus bradycardia on EKG at admission - continued episodes despite increase in HR following holding of beta-macy - holding home metoprolol at this time as potential bradycardia due to medications - Cardiology consulted: no clear association with episodes and arrythmia, need two week monitor for further examination of tachy-rosario concerns; will be given/have a monitor mailed to him on discharge - electron microprobe operator has been cleared as acceptable by facility - Neurology consulted: appreciate recommendations Atrial fibrillation: - decrease home metoprolol tartate to 25mg BID - continue systemic anticoagulation Bradycardia (resolved): - potential cause of syncopal episodes: see above Coronary artery disease: - reported extensive history of coronary artery disease - patient not on statin regimen at home - AM lipid profile unimpressive, but patient may benefit from treatment given history History of pulmonary embolus: - continue home Xarelto HTN: - continue lisinopril 2.5mg daily Admission and Anticipated Discharge Date Admission Date: May 22, 2020 Supervising Physician Co-Signing Physician Notes I saw the patient concurrent with the resident physician and confirmed chavez portions of the history and physical examination. I agree with the impression and plan as noted above. Also discussed the case with the automotive service consultant. In discussing things with the patient, it sounds as if he has had a previous work-up including an event monitor and there was previously discussions of a pacemaker placement. It sounds as if all this was delayed at the onset of the COVID pandemic. Furthermore he has been traveling and this has been a logistical obstacle in terms of proceeding with pacemaker placement. He is currently incarcerated pending a preliminary hearing so it is not clear how long he will remain in this area. If he had his choice he would had the procedure done at a [facility] in [place] which sounds to be home for him at the moment. Upon examination, the patient is without complaints. Blood pressure 130/79, pulse 66, respiratory 18, Temperature 36.8 C. Pulse oximetry 95% on room air Will monitor his heart rate overnight with the re-addition of a lower dose beta- macy Event monitor with the new dose of beta-macy Follow-up will depend on several issues as noted above; ultimately he probably will need a pacemaker, although when and where depends on a number of issues. Neurology consultation is pending for later today. Subjective Patient had two episodes of this dizziness and unsteadiness/weakness since yesterday; once while sitting in bed looking up to watch TV, and another while walking to the sink to wash his hands. Describes these as being more like feeling unsteady on his feel or feeling like his vision is closing in as he starts to feel the peripheral portions of his vision fade. Did not pass out, or lose consciousness with either episode and was not able to provoke them with this provider in the room. Review of Systems Review of Systems: All systems reviewed & are unremarkable except as noted in Subjective Physical Exam Constitutional: WD/WN, vitals as above Eyes: PERRL, conjunctivae normal, anicteric sclerae Respiratory: normal respiratory effort, lungs clear to auscultation Cardiovascular: Rate/Rhythm: regular rate and regular rhythm Heart Sounds: no gallop, no murmur and no cardiac rub Gastrointestinal (Abdomen): normal bowel sounds, soft, nontender, no hepatosplenomegaly Skin: no rashes, warm and dry Neurologic: patellar DTR's 2+ bilat, sensation intact and PERRL, EOMI, accommodation nl, no face palsy, no dysarthria Psychiatric: Orientation: alert and oriented x 3 Results & Data Results & Data ([facility]) Vital Signs (Past 12 Hours) Vital Signs Temp Pulse Resp BP Pulse Ox 05/24/20 07:59 36.5 C 74 18 113/72 100 05/24/20 03:32 36.3 C L 83 16 144/80 H 99 05/23/20 23:21 36.7 C 66 16 126/72 97 Laboratory Results 05/24/20 05/24/20 05/24/20 Range/Units 07:48 07:48 07:38 WBC 6.49 (4.8-10.8) K/uL RBC 4.76 (4.7-6.1) M/uL Hgb 15.1 (14.0-18.0) g/dL Hct 44.3 (42-52) % MCV 93.1 (80-100) fL MCH 31.7 (25-34) pg MCHC 34.1 (32-36) g/dL RDW Std Deviation 42.4 (36.4-46.3) fL RDW Coeff of Katherine 12.4 (11.5-14.5) % Plt Count 325 (130-400) K/uL MPV 9.3 (7.4-10.4) fL Immature Gran % (Auto) 0.2 % Neut % (Auto) 63.9 % Lymph % (Auto) 26.5 % [place] % (Auto) 6.6 % Eos % (Auto) 2.0 % Baso % (Auto) 0.8 % Neut # (Auto) 4.15 (1.4-6.5) K/uL Lymph # (Auto) 1.72 (1.2-3.4) K/uL [place] # (Auto) 0.43 (0.11-0.59) K/uL Eos # (Auto) 0.13 (0-0.5) K/uL Baso # (Auto) 0.05 (0-0.2) K/uL Immature Gran # (Auto) 0.01 (0.00-0.02) K/uL Sodium 139 (136-145) mmol/L Potassium 4.0 (3.5-5.1) mmol/L Chloride 108 H (98-107) mmol/L Carbon Dioxide 25 (21-32) mmol/L Anion Gap 7.0 (3-11) BUN 11 (7-18) mg/dl Creatinine 0.92 (0.6-1.4) mg/dl Est Cr Clr Drug Dosing 117.5 ml/min Est GFR ( Amer) 108.1 Est GFR (Non-Af Amer) 93.3 BUN/Creatinine Ratio 12.0 (10-20) Glucose 101 H (70-99) mg/dl POC Glucose 103 H (70-99) mg/dl Calcium 9.5 (8.5-10.1) mg/dl 05/23/20 05/23/20 05/23/20 Range/Units 19:26 15:55 11:24 WBC (4.8-10.8) K/uL RBC (4.7-6.1) M/uL Hgb (14.0-18.0) g/dL Hct (42-52) % MCV (80-100) fL MCH (25-34) pg MCHC (32-36) g/dL RDW Std Deviation (36.4-46.3) fL RDW Coeff of Katherine (11.5-14.5) % Plt Count (130-400) K/uL MPV (7.4-10.4) fL Immature Gran % (Auto) % Neut % (Auto) % Lymph % (Auto) % [place] % (Auto) % Eos % (Auto) % Baso % (Auto) % Neut # (Auto) (1.4-6.5) K/uL Lymph # (Auto) (1.2-3.4) K/uL [place] # (Auto) (0.11-0.59) K/uL Eos # (Auto) (0-0.5) K/uL Baso # (Auto) (0-0.2) K/uL Immature Gran # (Auto) (0.00-0.02) K/uL Sodium (136-145) mmol/L Potassium (3.5-5.1) mmol/L Chloride (98-107) mmol/L Carbon Dioxide (21-32) mmol/L Anion Gap (3-11) BUN (7-18) mg/dl Creatinine (0.6-1.4) mg/dl Est Cr Clr Drug Dosing ml/min Est GFR ( Amer) Est GFR (Non-Af Amer) BUN/Creatinine Ratio (10-20) Glucose (70-99) mg/dl POC Glucose 106 H 117 H 129 H (70-99) mg/dl Calcium (8.5-10.1) mg/dl Medications Administered Current Inpatient Medications Acetaminophen (Acetaminophen 325 Mg Tab) 650 mg PO Q4H PRN PRN Reason: Pain or Fever Stop: 06/21/20 14:33 Last Admin: 05/23/20 21:51 Dose: 650 mg Documented by: Albuterol (Albuterol Hfa 8 Gm Inhaler) 2 puffs INH QID PRN PRN Reason: Shortness Of Breath Stop: 06/21/20 14:33 Aspirin (Aspirin 81 Mg Ectab) [facility] [place] Stop: 06/22/20 08:59 Last Admin: 05/24/20 08:30 Dose: 81 mg Documented by: Furosemide (Furosemide 20 Mg Tab) 20 mg PO QAM [facility] Stop: 06/22/20 08:59 Last Admin: 05/24/20 08:30 Dose: 20 mg Documented by: Lisinopril (Lisinopril 2.5 Mg Tab) 2.5 mg PO QAM [facility] Stop: 06/22/20 08:59 Last Admin: 05/24/20 08:30 Dose: 2.5 mg Documented by: Melatonin (Melatonin 3 Mg Tab) 3 mg PO HS PRN PRN Reason: Sleep Stop: 06/22/20 20:42 Last Admin: 05/23/20 21:51 Dose: 3 mg Documented by: Miscellaneous (Remove Nicoderm Patch) 1 ea N/A DAILY@[id number] [facility] Stop: 06/23/20 08:58 Last Admin: 05/24/20 08:30 Dose: 1 ea Documented by: Nicotine (Nicotine 21 Mg/24 Hr Tdsy) 21 mg TD [facility] Stop: 06/23/20 08:59 Last Admin: 05/24/20 08:31 Dose: 21 mg Documented by: Nitroglycerin (Nitroglycerin Sl 0.4 Mg/Tab Tab) 0.4 mg SL UD PRN PRN Reason: Chest Pain Stop: 06/21/20 14:33 Ondansetron HCl (Ondansetron Inj 2 Mg/Ml 2 Ml Vial) 4 mg IV Q6H PRN PRN Reason: Nausea Stop: 06/21/20 14:33 Last Admin: 05/22/20 20:29 Dose: 4 mg Documented by: Potassium Chloride (Potassium Chloride 20 Meq Tabcr) 20 meq PO DAILY [facility] Stop: 06/22/20 08:59 Last Admin: 05/24/20 08:31 Dose: 20 meq Documented by: Rivaroxaban (Rivaroxaban 20 Mg Tab) 20 mg PO QAM [facility] Stop: 06/22/20 08:59 Last Admin: 05/24/20 08:30 Dose: 20 mg Documented by: Resident Activity Tracking Resident Involvement: Resident Care Provided Care Provided: Adult Hospital Medicine (1) Syncope Syncope type: unspecified Qualified Code(s): R55 - Syncope and collapse
--- NOTE | 2020-05-24 10:45 | Cardiology Progress Note ---
Date of Service May 24, 2020 Assessment & Plan (1) Syncope: No additional episodes. Some of his dizziness clearly occurs when his heart rate is normal. He does have some element of bradycardia primarily during sleeping hours. I do not think we have established any clear correlation bet ween arrhythmia and his symptoms. I think it is safe to restart his metoprolol at half dose, 25 mg twice daily. Think when he is ready for discharge we could set him up with an ambulatory monitor through our clinic. (2) Atrial fibrillation: Sinus rhythm here. 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 He should continue systemic anticoagulation. (3) CAD (coronary artery disease): No current symptoms of coronary insufficiency. (4) Shortness of breath: None this morning. Admission and Anticipated Discharge Date Admission Date: May 22, 2020 Subjective This morning patient claims to be feeling well. He was able to sleep for approximately 5 hours last evening. While he is generally she apical to the bed he was able to get up to the bathroom and ambulate briefly yesterday. He did report some sense of dizziness associated with that activity. This was accompanied by sense of nausea for which she was medicated. Review of Systems Review of Systems: Per HPI Physical Exam Physical Exam: The patient is alert and oriented. Mood and affect appeared normal. He answered all questions appropriately. HEENT: Pupils are equal and reactive to light and accommodation. Extraocular movements are intact. The sclerae are anicteric. Neuro: Cranial nerves intact Lungs: Clear to auscultation bilaterally. He has good air movement without use of accessory muscles. No rales wheezes or rhonchi. Cardiac: Heart demonstrates a slow rate and regular rhythm. Normal S1 and S2. No murmurs on examination. Pulses: The patient has palpable radial pulses bilaterally that are equal in intensity Extremities: There was no evidence of hypoperfusion. There is no cyanosis or clubbing. There is no edema. Skin: I did not appreciate any rashes on examination today. Results & Data ([facility]) Vital Signs (Past 12 Hours) Vital Signs Temp Pulse Resp BP Pulse Ox 05/24/20 07:59 36.5 C 74 18 113/72 100 05/24/20 03:32 36.3 C L 83 16 144/80 H 99 05/23/20 23:21 36.7 C 66 16 126/72 97 Laboratory Results Abnormal Lab Results 05/23/20 05/23/20 05/23/20 11:24 15:55 19:26 WBC RBC Hgb Hct MCV MCH MCHC RDW Std Deviation RDW Coeff of Katherine Plt Count MPV Immature Gran % (Auto) Neut % (Auto) Lymph % (Auto) [place] % (Auto) Eos % (Auto) Baso % (Auto) Neut # (Auto) Lymph # (Auto) [place] # (Auto) Eos # (Auto) Baso # (Auto) Immature Gran # (Auto) Sodium Potassium Chloride Carbon Dioxide Anion Gap BUN Creatinine Est Cr Clr Drug Dosing Est GFR ( Amer) Est GFR (Non-Af Amer) BUN/Creatinine Ratio Glucose POC Glucose 129 H 117 H 106 H Calcium 05/24/20 05/24/20 05/24/20 07:38 07:48 07:48 WBC 6.49 RBC 4.76 Hgb 15.1 Hct 44.3 MCV 93.1 MCH 31.7 MCHC 34.1 RDW Std Deviation 42.4 RDW Coeff of Katherine 12.4 Plt Count 325 MPV 9.3 Immature Gran % (Auto) 0.2 Neut % (Auto) 63.9 Lymph % (Auto) 26.5 [place] % (Auto) 6.6 Eos % (Auto) 2.0 Baso % (Auto) 0.8 Neut # (Auto) 4.15 Lymph # (Auto) 1.72 [place] # (Auto) 0.43 Eos # (Auto) 0.13 Baso # (Auto) 0.05 Immature Gran # (Auto) 0.01 Sodium 139 Potassium 4.0 Chloride 108 H Carbon Dioxide 25 Anion Gap 7.0 BUN 11 Creatinine 0.92 Est Cr Clr Drug Dosing 117.5 Est GFR ( Amer) 108.1 Est GFR (Non-Af Amer) 93.3 BUN/Creatinine Ratio 12.0 Glucose 101 H POC Glucose 103 H Calcium 9.5 PG Care Time/CCT Total # of Minutes Spent Total Time Spent with Patient: Total time spent is greater than 50% in coordination of care (as documented) at patient's floor/unit and/or counseling patient: Coding Level of Care Code 76680 Subseq Hosp Care Lvl 2 Diagnoses Syncope R55 Syncope type: unspecified Atrial fibrillation I48.0 Atrial fibrillation type: paroxysmal CAD (coronary artery disease) I25.10 Shortness of breath R06.02 (1) Syncope Syncope type: unspecified Qualified Code(s): R55 - Syncope and collapse (2) Atrial fibrillation Atrial fibrillation type: paroxysmal Qualified Code(s): I48.0 - Paroxysmal atrial fibrillation
[2020-05-24] MEDS: METOPROLOL TARTRATE 25 MG TAB PO SCH ×2 (11:47→20:00)
--- NOTE | 2020-05-24 11:51 | Electrocardiogram Report ---
Test Reason : Blood Pressure : / mmHG Vent. Rate : 061 BPM Atrial Rate : 061 BPM P-R Int : 136 ms QRS Dur : 080 ms QT Int : 432 ms P-R-T Axes : 066 065 051 degrees QTc Int : 434 ms Normal sinus rhythm Normal ECG When compared with ECG of 23-MAY-2020 06:32, No significant change was found Confirmed by Clement Omer ([id number]) on 05/24/2020 11:51:50 AM Referred By: [facility] Confirmed By:Santosh Omer
--- NOTE | 2020-05-24 13:33 | Neurology Consultation ---
Date of Consultation May 24, 2020 Assessment & Plan (1) Dizziness: Matt Randhawa is a 54 yo man w/ PMH of Afib on aspirin/xarelto, h/o cardiac arrest, h/o AR, h/o PE, HTN, lumbar degenerative changes and asthma who initially p/t [facility] for chest pain with 2 episodes of syncope prior to pres entation. Neurology consulted for evaluation of recurrent syncopal events. # Dizziness a/w recurrent syncope: likely mixed picture given his underlying cardiac disease and h/o migraines in the past. From a neurological standpoint, could represent vestibular migraines vs chronic subjective dizziness given that several episodes while admitted here have not been a/w changes in heart rate. Events do not sound c/w seizure (no need for an EEG). - Acute migraine treatment: recommend starting ubrelvy 50mg PO prn for headaches at the start (can also be used for vestibular migraine treatment) - Preventative migraine treatment: recommend starting magnesium 400mg daily. If no improvement in headaches or dizziness, could start effexor 37.5mg daily and uptitrate as tolerated. - May benefit from vestibular rehab however not sure if this is available at the [facility] Thank you for this interesting consult. Plan of care discussed with primary team. Please call or text with questions. (2) Syncope: History of Present Illness Attending Physician: Rajinder Newman, History of Present Illness Matt Randhawa is a 54 yo man w/ PMH of Afib on aspirin/xarelto, h/o cardiac arrest, h/o AR, h/o PE, HTN, lumbar degenerative changes and asthma who initially p/t [facility] for chest pain with 2 episodes of syncope prior to presentation. Neurology consulted for evaluation of recurrent syncopal events. He was noted at admission to have documented episodes fo Afib, as well as sinus pauses. He had cardioversion performed in [place] a few months ago and was noted to have discussion of possible pacemaker at that time. He was seen by cardiology this admission and initially had metoprolol held. During that time, he continued to have several episodes of dizziness without clear correlation to bradycardia. He was continued on his home aspirin and Xarelto, as well as home metoprolol and lisinopril. TTE showed EF 60-65%, mild LVH, no significant valvular disease. Lab work has been unremarkable with CBC WNL, CMP WNL aside from mildly elevated glucose levels, A1c 5.8, troponin negative, LDL 106, HCV negative, TSH WNL. Carotid Doppler showed mild atherosclerotic plaques in bilateral carotid arteries without significant stenosis noted. MRI brain independently reviewed and showed no acute or chronic infarct, no abnormal enhancement, minimal small vessel disease, no clear lesion pressing either CN VII/VIII complex. On examination, he reports that his dizziness occurs whether he is sitting and resting or standing and walking around. Notes that he has felt lightheaded like he is going to pass out after noticing "fluttering" in his chest prior to event. There is associated nausea, tunnel vision and mild hand sweatiness was events. He has not noticed any clear triggers to these events putting head turns. He does report having a history of A. fib and sinus pauses that he has been attributing the dizziness 2. He does report having a history of migraines associated with nausea/vomiting and photophobia. Reports that he previously took Fioricet for headache. He digressed and talked about his neck and back pain, which appear to be chronic for him. Always tangential and unable to describe how many days per month he has above headaches but did deny that headaches are currently a/w the dizziness but has gotten headaches in the past a/w dizziness that is similar in character. Allergies Allergy/AdvReac Type Severity Reaction Status Date / Time No Known Allergies Allergy Unverified 05/22/20 11:23 Home Medications Home Medications Medication Instructions Recorded Confirmed Type albuterol sulfate [Ventolin HFA] 2 puff INHALATION QID PRN 05/22/20 05/22/20 History aspirin 81 mg PO QAM 05/22/20 05/22/20 History furosemide [Lasix] 20 mg PO QAM 05/22/20 05/22/20 History lisinopril 2.5 mg PO QAM 05/22/20 05/22/20 History metoprolol tartrate [Lopressor] 50 mg PO BID 05/22/20 05/22/20 History potassium chloride 20 meq PO DAILY 05/22/20 05/22/20 History rivaroxaban [Xarelto] 20 mg PO QAM 05/22/20 05/22/20 History Patient History Medical History Atrial fibrillation Degenerative joint disease (DJD) of lumbar spine History of cardiac arrest 2006 History of heart attack x 5; 2006 s/p 2 stents; 2006 (2 weeks after stents); 2008, 2011, 2019? History of pulmonary embolus (PE) Hypertension Syncope Surgical History H/O maze procedure Sep 2019 Hx of CABG 4-vessel; [place]; Sep 2019 Family History Mother Coronary heart disease Father Hx of CABG Brother Coronary heart disease Social History Smoking Status: Former smoker Tobacco Type: Cigarettes packs per day: 1; Years Smoked: 20; Smoking End Date: 2017; Second Hand Exposure: No; Do You Dip or Chew Tobacco: No; Tobacco Cessation Education Requested by Patient: No Hx Alcohol Use: No Hx Substance Use: No Preferred Language: Nigerien Communication Ability: Effective Road Conductor Required: No Beliefs That Will Affect Care: None Current Living Situation: Other Current Living Situation Comment: Penit[facility] Other Information That Helps Us Care for You: No Feels Safe at Home: Yes Safety Concerns: Feels Safe At This Time Assistive Devices: None Review of Systems Review of Systems: 14 point review of systems completed and negative except as in HPI. Exam (Neuro) Physical Exam: General Exam: GEN: NAD, sitting in chair. HEENT: No conjunctival injection, no rhinorrhea. CV: RRR, no peripheral edema PULM: Nonlabored respirations on room air. Neuro Exam: MS: Awake and Alert. Oriented to person, place, and date. Speech fluent and appropriate without dysarthria or paraphasic errors. Language intact including naming, comprehension, repetition. Cognition and memory grossly intact. Attention intact. No neglect. CN: Visual mccollum full. No extinction to double simultaneous stimuli. No optic disc edema on fundoscopic exam. PERRLA OU. EOMI without nystagmus. Facial sensation intact to LT. Facial muscles full and symmetric. Hearing intact to conversation. Uvula midline with symmetric palatal elevation. Shoulder shrug normal. Tongue midline. MOTOR: Normal bulk and tone. No pronator drift. BUE strength 5/5 at deltoids, biceps, triceps, wrist flexors and extensors, and hand grasp bilaterally. BLE strength 5/5 at iliopsoas, hamstrings, quadriceps, tibialis anterior, and gastrocnemius bilaterally. REFLEXES: 2+ at biceps, triceps, brachioradialis, patella and Achilles bilaterally. Flexor plantar responses bilaterally. SENSORY: Intact to LT without extinction to double simultaneous stimuli. Vibration and pinprick intact throughout. COORDINATION: No dysmetria or ataxia on [id number] and skls-hl-swrl bilaterally. Normal Caridad bilaterally. GAIT: Normal gait and arm swing. Normal Romberg. Results & Data ([facility]) Vital Signs (Past 12 Hours) Vital Signs Temp Pulse Resp BP Pulse Ox 05/24/20 11:09 36.7 C 59 L 18 111/54 L 98 05/24/20 07:59 36.5 C 74 18 113/72 100 05/24/20 03:32 36.3 C L 83 16 144/80 H 99 PG Care Time/CCT Total # of Minutes Spent Total Time Spent with Patient: Total time spent is greater than 50% in coordination of care (as documented) at patient's floor/unit and/or counseling patient: Coding Level of Care Code 38338 Office/OBS Consult Lvl 5 Diagnoses Dizziness R42 Syncope R55 Syncope type: unspecified (1) Syncope Syncope type: unspecified Qualified Code(s): R55 - Syncope and collapse
[2020-05-24] MEDS: MELATONIN 3 MG TAB PO PRN (22:59)
--- NOTE | 2020-05-25 07:44 | Discharge Summary ---
Date of Service May 25, 2020 Admission HPI Per Admitting Provider 54yo male with CAD s/p CABG in 2020, PAF s/p MAZE procedure in 2020, and HTN who presents from [facility] with near-syncopal/syncopal episode [facility] am at the [facility]. Also, about 2 days ago, he had a full syncopal episode while he went from a seated to standing position. He is uncertain how long he had loss of consciousness with either event. He noted palpitations/fluttering of the heart prior to the event this am. He had a minimal amount of dull pain over the left chest with it. He was given aspirin and nitro SL this am at the [facility] with improved chest pain. This am when he felt poorly/dizzy he was taken to the [facility]. There was questionable loss of consciousness while he was on the [facility] stretcher. The nurses told him there were "pauses" / irregular heart beating when they listened but NOT a.fib. When patient arrived at [facility] he was in sinus bradycardia. Patient states he had 4-vessel CABG with MAZE procedure at [facility] in [facility] in early 2019. He was in [place] because the [facility] told [facility] - while he was living in [place] - that "[place] is the best place to have it [CABG] done." While hospitalized he was told he was having pauses in the setting of a.fib? and a pacer/ICD was recommended but instead he was sent home with what sounds like a LifeVest (?). He did not mention v-tach to me during the admission assessment, however. He admits to being noncompliant with the LifeVest following discharge. He ultimately moved from [place] to [place], [place]. He stated "I always loved [place] so that's why I went there." When he established with a concrete crusher loader operator in [place] he was in a.fib and he underwent elective cardioversion. He wore a 2-week event monitor prior to the cardioversion. He had frequent a.fib episodes according to the concrete crusher loader operator. The concrete crusher loader operator in [place] is through the [facility] (Dr Wheat?). Since the cardioversion several months he has had 8-10 episodes of near-syncope or syncope. Principal Diagnosis Syncope Discharge Exam Constitutional WD/WN, vitals as above Eyes PERRL, conjunctivae normal, anicteric sclerae Respiratory normal respiratory effort, lungs clear to auscultation Cardiovascular Rate/Rhythm: regular rate and regular rhythm Heart Sounds: no gallop, no murmur and no cardiac rub Gastrointestinal (Abdomen) normal bowel sounds, soft, nontender, no hepatosplenomegaly Skin no rashes, warm and dry Neurologic patellar DTR's 2+ bilat, sensation intact and PERRL, EOMI, accommodation nl, no face palsy, no dysarthria Psychiatric Orientation: alert and oriented x 3 Discharge Data Allergies Allergy/AdvReac Type Severity Reaction Status Date / Time No Known Allergies Allergy Unverified 05/22/20 11:23 Consultations 05/22/20 11:41 ED Decision to Admit Stat 05/22/20 12:58 Consult Health Information Management Stat 05/22/20 14:34 Consult Cardiology Routine 05/24/20 10:13 Consult Neurology Routine Ordered Studies 05/22/20 15:30 US carotid doppler BI Routine 05/23/20 13:18 MR brain wo/w con Routine Hospital Course (1) Syncope: Patient is a 54y/o M with PMH significant for CAD, and atrial fibrillation, with two week history of worsening dizziness and two recent episodes of passing out and falls where he hit the back of his head leading to him being brought into the hospital. Syncope: - uncertain etiology with potential sources being: tachy-rosario vs orthostatic hypotension vs neurologic component - Brain MRI w/ & w/o demonstrated: 1. No acute intracranial abnormality, specifically there is no evidence of acute or subacute infarct. 2. No abnormal enhancement. 3. Minimal scattered T2/FLAIR hyperintensities within the subcortical white matter of the bilateral cerebral hemispheres are suggestive of early chronic microvascular ischemic disease versus gliosis from chronic migraines. - sinus bradycardia on EKG at admission - continued episodes despite increase in HR following holding of beta-macy - Cardiology consulted: continue metoprolol tartrate at decreased dosing of 25mg BID, will do two week panel monitor before decision for placement of panel monitor - Neurology consulted: likely contributions from vestibular migraines, use of magnesium 400mg daily for prevention Atrial fibrillation: - decrease home metoprolol tartrate to 25mg BID Bradycardia (resolved): - potential cause of syncopal episodes: see above Coronary artery disease: - reported extensive history of coronary artery disease - patient not on statin regimen at home - AM lipid profile unimpressive, but patient may benefit from treatment given history History of pulmonary embolus: - continue home Xarelto HTN: - continue lisinopril 2.5mg daily Total Time Total Time Spent Total Time Spent (In Minutes): 30 Discharge Plan Discharge Items [facility] Reason For Visit: SYNCOPE,CHEST PAIN Discharge Diagnosis: Syncope Condition on Discharge: Good Activity: Per Instructions section Non-emergency contact: Primary Care Provider and Requisition Approver Call non-emergency contact if: you have any medication questions and your symptoms worsen Follow-up/Referrals: [facility] [Primary Care Provider] - Diet: Heart Healthy Addtl Attending Provider Instructions: Matt Randhawa is a 54y/o M with past medical history significant for atrial fibrillation, previous cardiac arrest; presented to the hospital for worsening dizziness and syncopal episodes over the last two weeks. During this evaluation, it was determined that while his heart rate was slow these episodes did not seem to be occurring in association with these episodes of bradycardia. While monitoring him on telemetry during this hospitalization, there were no noted episodes of prolonged pauses or arrhythmias. Upon evaluation by our concrete crusher loader operator, it was recommended to decrease his Metoprolol tartrate from 50mg twice a day, to 25mg twice a day, and it was recommended that he have a two week panel monitor placed to continue to monitor the electrical activity as he returns to his facility. Upon evaluation by our neurologist, it was determined that these dizziness and syncopal events could be related to a vestibular migraine, and they recommended he be started on oral magnesium supplementation of 400mg a day to limit these recurrences. Pending Studies at Discharge: No Stand-Alone Forms: My [facility] Skilled Items Patient informed of condition?: Yes Discharge Level of Care: Other Communicable Disease: No Discharge Prognosis: Stable Lines: None Urinary Catheter: No Medications and DC Order Prescriptions: New metoprolol tartrate 25 mg Tablet 25 mg PO BID 30 Days Qty: 60 RF: 0 magnesium 200 mg tablet 400 mg PO DAILY 30 Days Qty: 60 RF: 0 Continued potassium chloride 10 mEq Tablet Extended Release 20 meq PO DAILY RF: 0 aspirin 81 mg Tablet,Delayed Release (Dr/Ec) 81 mg PO QAM RF: 0 furosemide [Lasix] 20 mg Tablet 20 mg PO QAM RF: 0 albuterol sulfate [Ventolin HFA] 90 mcg/actuation Hfa Aerosol Inhaler 2 puff INHALATION QID PRN (Reason: Shortness Of Breath) RF: 0 lisinopril 2.5 mg Tablet 2.5 mg PO QAM RF: 0 Xarelto 20 mg Tablet 20 mg PO QAM RF: 0 Discontinued metoprolol tartrate [Lopressor] 50 mg Tablet 50 mg PO BID RF: 0 Discharge Orders: Discharge Order (Routine); Ordered 05/25/20 Ordered By: Efrain Gonzalez/Other Patient Handouts: Dizziness Balance Probs Fainting, ED Dizziness, Uncertain Cause Admission Data Admit Date/Time: 05/24/20 15:40 Attending Provider: Rajinder Newman Admit Provider: Steffen Leung Primary Care Provider: [facility] Other Providers: Steffen Leung ; Alexx Omer ; Natalya Lauren Other Interventions: Discharge Summary Assessment (RN) Last Done: 05/25/20 12:23 Supervising Physician Co-Signing Physician Notes I also saw the patient and reviewed chavez portions of the history and exam. I agree with the impression and plan as noted above. I also discussed the case with cardiology. Patient with bradycardia into the 30s overnight, but no symptoms while awake. No tachy dysrhythmias while awake, and no symptoms related to his HR. Plan is for discharge today to home (senior living) with outpatient event monitor. Consideration for pacemaker should he have tachycardia (or a-fib) to prove tachy-rosario syndrome. Discussed this plan with the patient, which he noted was similar to the plan with previous doctors (in [place]). He would favor having this done in [place], if able. Will discharge with reduced beta macy dose. If completes the event monitor and is still here in [place], can follow up here with cardiology. Else, the results could be forwarded to his cardiiologist in [place]. Resident Activity Tracking Resident Involvement: Resident Care Provided Care Provided: Adult Hospital Medicine
[2020-05-25] MEDS: RIVAROXABAN 20 MG TAB PO SCH (08:00)
[2020-05-25] MEDS: ASPIRIN 81 MG ECTAB PO SCH (08:01)
[2020-05-25] MEDS: POTASSIUM CHLORIDE 20 MEQ TABCR PO SCH (08:01)
[2020-05-25] MEDS: METOPROLOL TARTRATE 25 MG TAB PO SCH (08:01)
[2020-05-25] MEDS: FUROSEMIDE 20 MG TAB PO SCH (08:01)
[2020-05-25] MEDS: NICOTINE 21 MG/24 HR TDSY TD SCH (08:05)
== END 2020-05-25 13:33 | DRG 312 ==
LOC: 2S 10:20 → ED 10:20 → SUATTDRO 12:58 → 2S 13:30

== ENCOUNTER 2020-05-31 20:14 | Inpatient (IN) ==
[2020-05-31 20:55] LABS: Basophils # (auto) 0.04 K/uL (0-0.2); Basophils % (auto) 0.5 %; Eosinophils # (auto) 0.15 K/uL (0-0.5); Eosinophils % (auto) 1.7 %; Immature Granulocytes # (auto) 0.01 K/uL (0.00-0.02); Immature Granulocytes % (auto) 0.1 %; Lymphocytes # (auto) 2.49 K/uL (1.2-3.4); Mean Corpuscular Hemoglobin 31.6 pg (25-34); Mean Corpuscular Hgb Conc 33.3 g/dL (32-36); Mean Corpuscular Volume 94.8 fL (80-100); Mean Platelet Volume 9.4 fL (7.4-10.4); Monocytes # (auto) 0.68 K/uL (0.11-0.59); Monocytes % (auto) 7.9 %; Neutrophils # (auto) 5.23 K/uL (1.4-6.5); Neutrophils % (auto) 60.8 %; Platelet Count 358 K/uL (130-400); RDW Coefficient of Variation 12.5 % (11.5-14.5); RDW Standard Deviation 43.5 fL (36.4-46.3); Red Blood Count 4.43 M/uL (4.7-6.1)
--- NOTE | 2020-05-31 20:56 | XRay Report ---
XR chest 1V portable CLINICAL HISTORY: Atypical chest pain COMPARISON STUDY: 05/22/2020 FINDINGS: There are postsurgical changes of a midline sternotomy. The heart remains borderline enlarg ed. There is a metallic device projected over the spine. It is unclear whether this represents spinal hardware or sternal hardware. There is a left atrial band occluder. There is no failure. There is no focal pulmonary consolidation. There are no pleural effusions.[ IMPRESSION: No active disease in the chest. ACT 112: Negative or not required by law. Electronically signed by: Billy Lubin M.D. 05/31/2020 8:55 PM
--- NOTE | 2020-05-31 21:02 | Emergency Department Note ---
Impression & Plan Chest pain, Pre-syncope ED Provider Note NAME: NISHA [id number] TERENCE AGE: 54 SEX: M : 1965 ARRIVES VIA: Ambulance INFORMANT: Patient, ED PROVIDER(S): Brandyn Bailon MD Chief Complaint: Chest pain HPI: Patient does present with chest pain that is central with radiation to the left side. The patient states that this has been intermittent in nature with some associated feeling like he is going to pass out. Patient describes it is achy and pressure-like. The patient does have some nausea but without vomiting. The patient denies any lower extremity swelling. The patient states that he does refer history of CABG, Maze procedure, and was recently seen for similar symptoms. The patient is currently incarcerated due to concern for DUI. The patient has been compliant with his medications. The patient states that his pain has improved slightly since his symptoms began earlier today. Patient de nies any shortness of breath, fevers, chills, lower extremity swelling. No prior history of DVT but does have prior history of PE. Patient is on anticoagulant Acacian including aspirin. ROS: See HPI for pertinent positives and negatives. A total of 10 systems were reviewed and otherwise negative. Past medical history: See below Surgical history: See below Social history: See below Physical Exam: GENERAL: Asked. NAD, non-toxic. EYE EXAM: Normal conjunctiva. PERRL, no anisocoria and EOM's grossly intact w/o pain. NECK: Supple, no nuchal rigidity, no adenopathy, non-tender. No signs of m eningismus. LUNGS: Clear to auscultation. Normal chest wall mechanics. HEART: NSR, no MRG. ABDOMEN: Abdomen soft, non-tender, normo-active bowel sounds, no masses, no rebound or guarding. BACK: No CVA TTP. SKIN: No rashes and no bruising. UPPER EXTREMITIES: Upper extremities are grossly normal. LOWER EXTREMITIES: Grossly normal, no edema. Homans' sign bilaterally. NEURO EXAM: A&O x3, cranial nerves II-XII grossly intact, normal speech, moves all 4 extremities on command w/o issue. Differential diagnoses: Cardiac ischemia, aortic dissection, pulmonary embolism, pneumothorax, pneumonia, pericarditis, myocarditis, esophageal rupture, GERD, cholecystitis, pancreatitis, musculoskeletal, as well as other pathologies. Course: Patient was seen and evaluated the bedside. Full history physical exam was performed. EKG: Indication: Chest pain Sinus bradycardia, rate of 50, normal intervals, normal axis, no ST changes or T WI. No significant change from comparison EKG May 24, 2020. Imaging Studies: Radiology results as stated below per my review in the radiologist's interpretation: XR chest 1V portable CLINICAL HISTORY: Atypical chest pain COMPARISON STUDY: 05/22/2020 FINDINGS: There are postsurgical changes of a midline sternotomy. The heart remains borderline enlarged. There is a metallic device projected over the spine. It is unclear whether this represents spinal hardware or sternal hardware. There is a left atrial band occluder. There is no failure. There is no focal pulmonary consolidation. There are no pleural effusions.[ IMPRESSION: No active disease in the chest. ACT 112: Negative or not required by law. Electronically signed by: Billy Lubin M.D. 05/31/2020 8:55 PM Dictated: 05/31/202052 Transcribed: 05/31/202052 Cardiac monitoring: An order was placed for continuous cardiac monitoring. The monitor shows a rate of 45 with sinus bradycardia rhythm. MDM: Does present to concern for chest pains. The patient does have significant allyssa or history of cardiac disease. No obvious changes on EKG but the patient has been feeling symptomatic like he is going to pass out and does have some bradycardia present. Patient's blood work is fairly unremarkable and EKG does not show acute ischemic changes. Patient was ordered some additional sublingual nitro as needed for chest pain. I did speak with the on-call hospitalist to further evaluated the patient. The patient was admitted to the medicine service under Dr. Jackson Past Med/Surg History Medical History Atrial fibrillation Degenerative joint disease (DJD) of lumbar spine History of cardiac arrest 2006 - [place] History of heart attack x 5; 2006 s/p 2 stents; 2006 (2 weeks after stents); 2008, 2011, 2019? History of pulmonary embolus (PE) Hypertension Syncope Surgical History H/O maze procedure Sep 2019 Hx of CABG 4-vessel; [place]; Sep 2019 Family History Mother Coronary heart disease Father Hx of CABG Brother Coronary heart disease Social History Smoking Status: Former smoker Tobacco Type: Cigarettes packs per day: 1; Second Hand Exposure: No; Hx Alcohol Use: Yes Hx Substance Use: Yes Non-Prescribed Medications: Amphetamines Substance Use Type Other:: patient stated he did speed about a month ago Preferred Language: Slovenian Communication Ability: Effective Folding Machine Feeder Required: No Beliefs That Will Affect Care: None Current Living Situation: Other Current Living Situation Comment: [facility] Feels Safe at Home: Yes Assistive Devices: None Allergies Allergies Allergy/AdvReac Type Severity Reaction Status Date / Time No Known Allergies Allergy Unverified 05/22/20 11:23 Home Meds Home Medications Medication Instructions Recorded Confirmed Xarelto 20 mg PO QAM 05/22/20 05/31/20 albuterol sulfate [Ventolin HFA] 2 puff INHALATION QID PRN 05/22/20 05/31/20 aspirin 81 mg PO QAM 05/22/20 05/31/20 furosemide [Lasix] 20 mg PO QAM 05/22/20 05/31/20 lisinopril 2.5 mg PO QAM 05/22/20 05/31/20 potassium chloride 20 meq PO DAILY 05/22/20 05/31/20 naproxen sodium 375 mg PO BID PRN 05/31/20 05/31/20 Previous Rx's Medication Instructions Recorded magnesium 400 mg PO DAILY 30 Days #60 tab 05/25/20 metoprolol tartrate 25 mg PO BID 30 Days #60 tab 05/25/20 atorvastatin [Lipitor] 80 mg PO DAILY #30 tab 06/01/20 Results & Data (ED) Vital Signs Vital Signs - 24 hr 05/31/20 20:26 05/31/20 20:31 05/31/20 20:45 Temperature 36.7 C Temperature Source Oral Pulse Rate 61 60 62 Pulse Rate from SpO2 Sensor Respiratory Rate 22 18 16 Respiratory Effort / Characteristics Non-Labored Spontaneous Respiratory Depth Normal Respiratory Pattern Regular Blood Pressure 134/72 142/67 H 134/80 Blood Pressure Mean 92 79 94 Blood Pressure Position Lying Pulse Oximetry 98 98 Oxygen Delivery Method Room Air Sepsis Recent Fever Within 48 Hours No Sepsis New/Unexplained Change in Mental Status No Sepsis Action Taken by Nursing No Action Required 05/31/20 21:00 05/31/20 21:16 05/31/20 21:30 Temperature Temperature Source Pulse Rate 50 L 50 L 49 L Pulse Rate from SpO2 Sensor 50 L 49 L Respiratory Rate 15 16 14 Respiratory Effort / Characteristics Respiratory Depth Respiratory Pattern Blood Pressure 116/65 122/72 145/67 H Blood Pressure Mean 75 106 87 Blood Pressure Position Pulse Oximetry 98 98 98 Oxygen Delivery Method Sepsis Recent Fever Within 48 Hours Sepsis New/Unexplained Change in Mental Status Sepsis Action Taken by Nursing 05/31/20 21:45 05/31/20 22:00 05/31/20 22:15 Temperature Temperature Source Pulse Rate 48 L 48 L 61 Pulse Rate from SpO2 Sensor 49 L 47 L 62 Respiratory Rate 17 19 15 Respiratory Effort / Characteristics Respiratory Depth Respiratory Pattern Blood Pressure 121/64 132/69 130/63 Blood Pressure Mean 81 88 73 Blood Pressure Position Pulse Oximetry 98 98 98 Oxygen Delivery Method Sepsis Recent Fever Within 48 Hours Sepsis New/Unexplained Change in Mental Status Sepsis Action Taken by Long-Term Medications Current Medication List: was personally reviewed by me Laboratory Data Attestation: I reviewed the patient's lab results. Result diagrams: 06/01/20 05:48 06/01/20 05:48 Lab Results 05/31/20 05/31/20 05/31/20 Range/Units 20:31 20:31 20:31 WBC 8.60 (4.8-10.8) K/uL RBC 4.43 L (4.7-6.1) M/uL Hgb 14.0 (14.0-18.0) g/dL Hct 42.0 (42-52) % MCV 94.8 (80-100) fL MCH 31.6 (25-34) pg MCHC 33.3 (32-36) g/dL RDW Std Deviation 43.5 (36.4-46.3) fL RDW Coeff of Katherine 12.5 (11.5-14.5) % Plt Count 358 (130-400) K/uL MPV 9.4 (7.4-10.4) fL Immature Gran % (Auto) 0.1 % Neut % (Auto) 60.8 % Lymph % (Auto) 29.0 % [place] % (Auto) 7.9 % Eos % (Auto) 1.7 % Baso % (Auto) 0.5 % Neut # (Auto) 5.23 (1.4-6.5) K/uL Lymph # (Auto) 2.49 (1.2-3.4) K/uL [place] # (Auto) 0.68 H (0.11-0.59) K/uL Eos # (Auto) 0.15 (0-0.5) K/uL Baso # (Auto) 0.04 (0-0.2) K/uL Immature Gran # (Auto) 0.01 (0.00-0.02) K/uL PT 13.0 H (9.0-12.0) Seconds INR 1.2 H (0.9-1.1) APTT 32.6 H (21.0-31.0) Seconds PTT Ratio 1.2 Sodium 142 (136-145) mmol/L Potassium 4.0 (3.5-5.1) mmol/L Chloride 108 H (98-107) mmol/L Carbon Dioxide 30 (21-32) mmol/L Anion Gap 4.0 (3-11) BUN 14 (7-18) mg/dl Creatinine 0.97 (0.6-1.4) mg/dl Est Cr Clr Drug Dosing 114.2 ml/min Est GFR ( Amer) 101.4 Est GFR (Non-Af Amer) 87.5 BUN/Creatinine Ratio 14.5 (10-20) Glucose 98 (70-99) mg/dl Calcium 9.2 (8.5-10.1) mg/dl Phosphorus (2.5-4.9) mg/dl Magnesium (1.8-2.4) mg/dl Total Bilirubin 0.2 (0.2-1) mg/dl AST 15 (15-37) U/L ALT 27 (12-78) U/L Alkaline Phosphatase 101 (45-117) U/L Troponin I < 0.015 (0-0.045) ng/ml Total Protein 6.8 (6.4-8.2) gm/dl Albumin 3.6 (3.4-5.0) gm/dl Globulin 3.2 (2.5-4.0) gm/dl Albumin/Globulin Ratio 1.1 (0.9-2) Lipase 88 (73-393) U/L 1006/01/20 06/01/20 Range/Units 05:48 05:48 05:48 WBC 6.15 (4.8-10.8) K/uL RBC 4.60 L (4.7-6.1) M/uL Hgb 14.2 (14.0-18.0) g/dL Hct 43.2 (42-52) % MCV 93.9 (80-100) fL MCH 30.9 (25-34) pg MCHC 32.9 (32-36) g/dL RDW Std Deviation 43.1 (36.4-46.3) fL RDW Coeff of Katherine 12.6 (11.5-14.5) % Plt Count 334 (130-400) K/uL MPV 9.5 (7.4-10.4) fL Immature Gran % (Auto) 0.2 % Neut % (Auto) 60.1 % Lymph % (Auto) 29.1 % [place] % (Auto) 8.0 % Eos % (Auto) 2.1 % Baso % (Auto) 0.5 % Neut # (Auto) 3.70 (1.4-6.5) K/uL Lymph # (Auto) 1.79 (1.2-3.4) K/uL [place] # (Auto) 0.49 (0.11-0.59) K/uL Eos # (Auto) 0.13 (0-0.5) K/uL Baso # (Auto) 0.03 (0-0.2) K/uL Immature Gran # (Auto) 0.01 (0.00-0.02) K/uL PT 12.2 H (9.0-12.0) Seconds INR 1.2 H (0.9-1.1) APTT 30.4 (21.0-31.0) Seconds PTT Ratio 1.1 Sodium 141 (136-145) mmol/L Potassium 3.8 (3.5-5.1) mmol/L Chloride 109 H (98-107) mmol/L Carbon Dioxide 28 (21-32) mmol/L Anion Gap 4.0 (3-11) BUN 13 (7-18) mg/dl Creatinine 0.90 (0.6-1.4) mg/dl Est Cr Clr Drug Dosing 119.7 ml/min Est GFR ( Amer) 111.0 Est GFR (Non-Af Amer) 95.8 BUN/Creatinine Ratio 14.3 (10-20) Glucose 90 (70-99) mg/dl Calcium 9.2 (8.5-10.1) mg/dl Phosphorus 3.7 (2.5-4.9) mg/dl Magnesium 2.1 (1.8-2.4) mg/dl Total Bilirubin (0.2-1) mg/dl AST (15-37) U/L ALT (12-78) U/L Alkaline Phosphatase (45-117) U/L Troponin I < 0.015 (0-0.045) ng/ml Total Protein (6.4-8.2) gm/dl Albumin 3.3 L (3.4-5.0) gm/dl Globulin (2.5-4.0) gm/dl Albumin/Globulin Ratio (0.9-2) Lipase (73-393) U/L Administered Medications Discontinued Medications Atorvastatin Calcium (Atorvastatin 40 Mg Tab) 80 mg PO QAM POPEYE Stop: 07/01/20 13:44 Last Admin: 06/01/20 14:40 Dose: 80 mg Documented by: [id number] Potassium Chloride/Sodium Chloride (Normal Saline W/20 Meq Kcl) 20 meq in 1,000 mls @ 80 mls/hr IV .[id number] POPEYE Stop: 07/01/20 02:08 Last Infusion: 06/01/20 12:24 Dose: 0 mls/hr Documented by: [id number] Infusion: 06/01/20 11:55 Dose: 0 mls/hr Documented by: [id number] Admin: 06/01/20 02:39 Dose: 80 mls/hr Documented by: [id number] Nitroglycerin (Nitroglycerin Sl 0.4 Mg/Tab Tab) 0.4 mg SL NOW STA Stop: 05/31/20 22:06 Last Admin: 05/31/20 22:10 Dose: 0.4 mg Documented by: [id number] Discharge Plan Visit Data Chief Complaint: Chest Pain Stated Complaint: chest pain ED Provider: Brandyn Bailon Discharge Problem: Chest pain, Pre-syncope Patient Disposition: Admitted As Inpatient Discharge Instructions Interventions: ED Discharge Assessment Last Done: 05/31/20 23:11 Discharge Problem: Chest pain Qualifiers: Chest pain type: unspecified Qualified Code(s): R07.9 - Chest pain, unspecified
[2020-05-31 21:07] LABS: INR 1.2 (0.9-1.1); Partial Thromboplastin Ratio 1.2; Partial Thromboplastin Time 32.6 Seconds (21.0-31.0)
[2020-05-31 21:16] LABS: Alanine Aminotransferase 27 U/L (12-78); Albumin Level 3.6 gm/dl (3.4-5.0); Aspartate Aminotransferase 15 U/L (15-37); BUN Creatinine Ratio 14.5 (10-20); Blood Urea Nitrogen 14 mg/dl (7-18); Calcium 9.2 mg/dl (8.5-10.1); Carbon Dioxide 30 mmol/L (21-32); Chloride 108 mmol/L (98-107); Creatinine Clr Calc Pharmacy 114.2 ml/min; Est GFR (African American) 101.4; Est GFR (Non-African American) 87.5; Glucose 98 mg/dl (70-99); Lipase 88 U/L (73-393); Sodium 142 mmol/L (136-145)
[2020-05-31 21:21] LABS: Albumin Globulin Ratio 1.1 (0.9-2); Alkaline Phosphatase 101 U/L (45-117); Bilirubin,Total 0.2 mg/dl (0.2-1); Globulin 3.2 gm/dl (2.5-4.0); Total Protein 6.8 gm/dl (6.4-8.2); Troponin I < 0.015 ng/ml (0-0.045)
[2020-05-31] MEDS ORDERED: NITROGLYCERIN SL 0.4 MG/TAB TAB SL STA (22:05)
[2020-05-31] MEDS ORDERED: NITROGLYCERIN SL 0.4 MG/TAB TAB SL PRN (22:05)
--- NOTE | 2020-06-01 00:45 | History & Physical Report ---
Date of Service June 01, 2020 The patient was seen and examined on May 31, 2020 Assessment & Plan (1) Syncope: Syncope/tachybradycardia syndrome/paroxysmal atrial fibrillation/symptomatic bradycardia/CAD/history of IL/status post CABG/hypertension- The patient will be admitted to telemetry for serial cardiac enzymes, serial EKG's, and cardiac rhythm monitoring Most recent hospitalization from 05/22-05/25/2020 for similar complaints, and at that time had his metoprolol tartrate decreased to 25 mg p.o. twice daily. Heart rate in the emergency department remains in the mid to upper 40s and occasionally into the low 50s. Consult cardiology, Dr. Omer, who assessed patient during last visit. N.p.o. after midnight Hold aspirin, furosemide, lisinopril, metoprolol tartrate, potassium chloride and Xarelto. NSS + KCl 20 mEq at 80 mils per hour Present on Admission?: Yes (2) Bradycardia: See above. Present on Admission?: Yes (3) Atrial fibrillation: See above Present on Admission?: Yes (4) CAD (coronary artery disease): See above Present on Admission?: Yes (5) Hx of CABG: See above Present on Admission?: Yes (6) History of cardiac arrest: See above Present on Admission?: Yes (7) Hypertension: See above Present on Admission?: Yes (8) History of pulmonary embolus (PE): Holding Xarelto for potential procedure Present on Admission?: Yes Admission and Anticipated Discharge Date Admission Date: May 31, 2020 History of Present Illness Chief Complaint: The patient presents to the emergency department for evaluation of recurrent near syncopal/syncopal episodes since being discharged on 05/25/2020 Primary Care Provider: [facility] The patient is a 54-year-old male resident of [facility], with a past medical history including CAD, PE, CABG, cardiac arrest, DJD of lumbar spine, syncope, history of Maze procedure, paroxysmal atrial fibrillation, bradycardia, tachybradycardia syndrome, hypertension, and history of IL. He was most recently admitted from 05/22-05/25/2020 for syncopal episodes, and at that time had his metoprolol tartrate cut in half to 25 mg p.o. twice daily, with likely need for pacer placement. He presents to the emergency department tonight with similar complaints. Allergies Allergy/AdvReac Type Severity Reaction Status Date / Time No Known Allergies Allergy Unverified 05/22/20 11:23 Home Medications Home Medications Medication Instructions Recorded Confirmed Type Xarelto 20 mg PO QAM 05/22/20 05/31/20 History albuterol sulfate [Ventolin HFA] 2 puff INHALATION QID PRN 05/22/20 05/31/20 History aspirin 81 mg PO QAM 05/22/20 05/31/20 History furosemide [Lasix] 20 mg PO QAM 05/22/20 05/31/20 History lisinopril 2.5 mg PO QAM 05/22/20 05/31/20 History potassium chloride 20 meq PO DAILY 05/22/20 05/31/20 History magnesium 400 mg PO DAILY 30 Days #60 tab 05/25/20 05/31/20 Rx metoprolol tartrate 25 mg PO BID 30 Days #60 tab 05/25/20 05/31/20 Rx naproxen sodium 375 mg PO BID PRN 05/31/20 05/31/20 History Past Med/Surg History Medical History Atrial fibrillation Degenerative joint disease (DJD) of lumbar spine History of cardiac arrest 2006 - History of heart attack x 5; 2006 s/p 2 stents; 2006 (2 weeks after stents); 2008, 2011, 2019? History of pulmonary embolus (PE) Hypertension Syncope Surgical History H/O maze procedure Sep 2019 Hx of CABG 4-vessel; [place]; Sep 2019 Family History Mother Coronary heart disease Father Hx of CABG Brother Coronary heart disease Social History Smoking Status: Former smoker Tobacco Type: Cigarettes packs per day: 1; Second Hand Exposure: No; Hx Alcohol Use: Yes Hx Substance Use: Yes Non-Prescribed Medications: Amphetamines Substance Use Type Other:: patient stated he did speed about a month ago Preferred Language: Omani Communication Ability: Effective Technology Auditor Required: No Beliefs That Will Affect Care: None Current Living Situation: Other Current Living Situation Comment: Group Home Other Information That Helps Us Care for You: No Feels Safe at Home: Yes Safety Concerns: Feels Safe At This Time Assistive Devices: None Review of Systems Review of Systems: The patient denies chest pain, palpitations, shortness of breath, dyspnea on exertion, cough, lower extremity swelling, sore throat, fevers, chills, sweats, nausea, vomiting, diarrhea , constipation, abdominal pain, pelvic pain, blood in urine or stool, dysuria, urinary frequency or urgency, rash, abnormal bruising or bleeding, imbalance, focal or generalized weakness, numbness or tingling in arms or legs, generalized arthralgias or myalgias, back or neck pain, or night sweats. The review of systems is otherwise negative other than for that already noted above, and at least 10 systems have been reviewed. Physical Exam Physical Exam: The patient is awake, alert and oriented 3, well developed and well nourished, normocephalic and atraumatic, lying in bed and in no acute distress. HEENT--PERRL, EOMI, mucous membranes and oropharynx normal. Neck--supple. No JVD. No bruits. Thyroid normal, trachea midline, no adenopathy. Heart--normal S1 and S2. No murmurs, rubs or gallops. Lungs--clear bilaterally, no respiratory distress, no accessory muscle use. Abdomen--normal bowel sounds and soft. Nontender. Nondistended. Extremities--no cyanosis or clubbing. No edema. Dermatologic--normal skin turgor, normal color, no abnormal lymph nodes, no rash. Neurologic--cranial nerves II through XII grossly intact. Rheumatologic--normal range of motion. Psychiatric--normal affect. Results & Data Results & Data ([facility]) Vital Signs (Past 12 Hours) Vital Signs Temp Pulse Pulse Resp BP BP Pulse Ox 05/31/20 23:42 97.5 F L 51 L 16 181/74 H 100 05/31/20 22:15 61 15 130/63 98 05/31/20 22:00 48 L 19 132/69 98 05/31/20 21:45 48 L 17 121/64 98 05/31/20 21:30 49 L 14 145/67 H 98 05/31/20 21:16 50 L 16 122/72 98 05/31/20 21:00 50 L 15 116/65 98 05/31/20 20:45 62 16 134/80 98 05/31/20 20: 60 18 142/67 H 05/31/20 20: 98.1 F 61 22 134/72 98 Laboratory Results Laboratory Results WBC 8.60 K/uL (4.8-10.8) 05/31/20 20: RBC 4.43 M/uL (4.7-6.1) L 05/31/20 20: Hgb 14.0 g/dL (14.0-18.0) 05/31/20 20: Hct 42.0 % (42-52) 05/31/20 20: MCV 94.8 fL (80-100) 05/31/20: MCH 31.6 pg (25-34) 05/31/20: MCHC 33.3 g/dL (32-36) 05/31/20 20: RDW Std Deviation 43.5 fL (36.4-46.3) 05/31/20 RDW Coeff of Katherine 12.5 % (11.5-14.5) 05/31/20: Plt Count 358 K/uL (130-400) 05/31/20 20: MPV 9.4 fL (7.4-10.4) 05/31/20: Immature Gran % (Auto) 0.1 % 05/31/20 20: Neut % (Auto) 60.8 % 05/31/20 20: Lymph % (Auto) 29.0 % 05/31/20: [place] % (Auto) 7.9 % 05/31/20: Eos % (Auto) 1.7 % 05/31/20 20: Baso % (Auto) 0.5 % 05/31/20 20: Neut # (Auto) 5.23 K/uL (1.4-6.5) 05/31/20: Lymph # (Auto) 2.49 K/uL (1.2-3.4) 05/31/20 20: [place] # (Auto) 0.68 K/uL (0.11-0.59) H 05/31/20 20: Eos # (Auto) 0.15 K/uL (0-0.5) 05/31/20 20:31 Baso # (Auto) 0.04 K/uL (0-0.2) 05/31/20 20: Immature Gran # (Auto) 0.01 K/uL (0.00-0.02) 05/31/20 20: PT 13.0 Seconds (9.0-12.0) H 05/31/20 20: INR 1.2 (0.9-1.1) H 05/31/20 20: APTT 32.6 Seconds (21.0-31.0) H 05/31/20 20: PTT Ratio 1.2 05/31/20 20: Sodium 142 mmol/L (136-145) 05/31/20 20: Potassium 4.0 mmol/L (3.5-5.1) 05/31/20 20: Chloride 108 mmol/L (98-107) H 05/31/20 20: Carbon Dioxide 30 mmol/L (21-32) 05/31/20 20: Anion Gap 4.0 (3-11) 05/31/20 20: BUN 14 mg/dl (7-18) 05/31/20 20: Creatinine 0.97 mg/dl (0.6-1.4) 05/31/20 20: Est Cr Clr Drug Dosing 114.2 ml/min 05/31/20 20: Est GFR ( Amer) 101.4 05/31/20 20: Est GFR (Non-Af Amer) 87.5 05/31/20 20: BUN/Creatinine Ratio 14.5 (10-20) 05/31/20 20: Glucose 98 mg/dl (70-99) 05/31/20 20: Calcium 9.2 mg/dl (8.5-10.1) 05/31/20 20: Total Bilirubin 0.2 mg/dl (0.2-1) 05/31/20 20: AST 15 U/L (15-37) 05/31/20 20:31 ALT 27 U/L (12-78) 05/31/20 20:31 Alkaline Phosphatase 101 U/L (45-117) 05/31/20 20: Troponin I < 0.015 ng/ml (0-0.045) 05/31/20 20:31 Total Protein 6.8 gm/dl (6.4-8.2) 05/31/20 20:31 Albumin 3.6 gm/dl (3.4-5.0) 05/31/20 20:31 Globulin 3.2 gm/dl (2.5-4.0) 05/31/20 20:31 Albumin/Globulin Ratio 1.1 (0.9-2) 05/31/20 20:31 Lipase 88 U/L (73-393) 05/31/20 20:31 Diagnostic Findings [place], [place] [phone] XRay Report Patient: NISHA PRATT [id number] Date: 05/31/20 MR#: [id number]: 700 IGGY MCNAIR Acct ID:[id number]: Date: 1965[facility] Zip: [place] [address] Age: 54Location: ED Sex: MRoom/Bed: Att Phy:Diagnosis: chest pain [facility] Fam Phy:Interpreting Phy: Billy Lubin MD Admit Phy: Ordering Phy: TEM,ED cc: ~ XR chest 1V portable CLINICAL HISTORY: Atypical chest pain COMPARISON STUDY: 05/22/2020 FINDINGS: There are postsurgical changes of a midline sternotomy. The heart remains borderline enlarged. There is a metallic device projected over the spine. It is unclear whether this represents spinal hardware or sternal hardware. There is a left atrial band occluder. There is no failure. There is no focal pulmonary consolidation. There are no pleural effusions.[ IMPRESSION: No active disease in the chest. ACT 112: Negative or not required by law. Electronically signed by: Billy Lubin M.D. 05/31/2020 8:55 PM Dictated: 05/31/202052 Transcribed: 05/31/202052 Code Status & VTE Plan Code Status Full code VTE Prophylaxis Plan VTE Prophylaxis will be ordered: Yes PG Care Time/CCT Total # of Minutes Spent Total Time Spent with Patient: Total time spent is greater than 50% in coordination of care (as documented) at patient's floor/unit and/or counseling patient: Coding Level of Care Code 84768 OBS Care - Level 3 Diagnoses Syncope R55 Syncope type: unspecified Bradycardia R00.1 Atrial fibrillation I48.0 Atrial fibrillation type: paroxysmal CAD (coronary artery disease) I25.10 Hx of CABG Z95.1 History of cardiac arrest Z86.74 Hypertension I10 Hypertension type: essential hypertension History of pulmonary embolus (PE) Z86.711 (1) Syncope Syncope type: unspecified Qualified Code(s): R55 - Syncope and collapse (2) Atrial fibrillation Atrial fibrillation type: paroxysmal Qualified Code(s): I48.0 - Paroxysmal atrial fibrillation (3) Hypertension Hypertension type: essential hypertension Qualified Code(s): I10 - Essential (primary) hypertension
[2020-06-01] MEDS ORDERED: ONDANSETRON INJ 2 MG/ML 2 ML VIAL IV PRN (02:09)
[2020-06-01] MEDS ORDERED: NSS + 20MEQ KCL 20 MEQ/1,000 ML BAG IV SCH (02:09)
[2020-06-01] MEDS ORDERED: ACETAMINOPHEN 325 MG TAB PO PRN (02:09)
[2020-06-01 06:23] LABS: Basophils # (auto) 0.03 K/uL (0-0.2); Basophils % (auto) 0.5 %; Eosinophils # (auto) 0.13 K/uL (0-0.5); Eosinophils % (auto) 2.1 %; Hematocrit (blood only) 43.2 % (42-52); Hemoglobin 14.2 g/dL (14.0-18.0); Immature Granulocytes # (auto) 0.01 K/uL (0.00-0.02); Immature Granulocytes % (auto) 0.2 %; Lymphocytes # (auto) 1.79 K/uL (1.2-3.4); Lymphocytes % (auto) 29.1 %; Mean Corpuscular Hemoglobin 30.9 pg (25-34); Mean Corpuscular Hgb Conc 32.9 g/dL (32-36); Mean Corpuscular Volume 93.9 fL (80-100); Mean Platelet Volume 9.5 fL (7.4-10.4); Monocytes # (auto) 0.49 K/uL (0.11-0.59); Neutrophils % (auto) 60.1 %; Platelet Count 334 K/uL (130-400); RDW Coefficient of Variation 12.6 % (11.5-14.5); RDW Standard Deviation 43.1 fL (36.4-46.3); White Blood Count 6.15 K/uL (4.8-10.8)
[2020-06-01 06:31] LABS: INR 1.2 (0.9-1.1); Partial Thromboplastin Ratio 1.1; Partial Thromboplastin Time 30.4 Seconds (21.0-31.0); Prothrombin Time 12.2 Seconds (9.0-12.0)
[2020-06-01 06:51] LABS: Albumin Level 3.3 gm/dl (3.4-5.0); BUN Creatinine Ratio 14.3 (10-20); Blood Urea Nitrogen 13 mg/dl (7-18); Calcium 9.2 mg/dl (8.5-10.1); Carbon Dioxide 28 mmol/L (21-32); Chloride 109 mmol/L (98-107); Creatinine Clr Calc Pharmacy 119.7 ml/min; Est GFR (Non-African American) 95.8; Glucose 90 mg/dl (70-99); Magnesium 2.1 mg/dl (1.8-2.4); Potassium 3.8 mmol/L (3.5-5.1); Sodium 141 mmol/L (136-145)
[2020-06-01 06:55] LABS: Phosphorus 3.7 mg/dl (2.5-4.9); Troponin I < 0.015 ng/ml (0-0.045)
--- NOTE | 2020-06-01 10:24 | Hospitalist Progress Note ---
Date of Service June 01, 2020 Assessment & Plan (1) Syncope: 54 yo M PMHx CAD s/p CABG, PE on Xarelto therapy, paroxysmal atrial fibrillation, tachybrady syndrome, HTN admitted for continued episodes of syncope at correctional facility. Syncope in patient with AFib and tachybrady syndrome: - Last admitted (2) Atrial fibrillation: (3) Hypertension: (4) CAD (coronary artery disease): (5) Bradycardia: (6) Hx of CABG: (7) History of pulmonary embolus (PE): Admission and Anticipated Discharge Date Admission Date: May 31, 2020 Subjective Patient reports no concerns or complaints overnight. Patient did have an episode of sinus bradycardia to 37 on telemetry, with range between 37-51. Was asleep at that time, and without symptoms. States this morning that when he went back to the correctional facility that he had episodes of dizziness and sensation of pre-syncope sometimes when standing but also sometimes while lying down or would get awoken from sleep with symptoms. Denies chest pain, palpitations, shortness of breath, abdominal pain, nausea or vomiting, fevers or chills. Review of Systems Review of Systems: All systems reviewed & are unremarkable except as noted in HPI & below Constitutional: no fever, no chills and no malaise Respiratory: no cough and no dyspnea Cardiovascular: no chest pain, no palpitations and no edema Gastrointestinal: no abdominal pain, no constipation and no diarrhea/loose stools Physical Exam Constitutional: WD/WN, vitals as above ENMT: external ear and nose normal, oropharynx normal Neck: normal visual inspection Respiratory: normal respiratory effort, lungs clear to auscultation Cardiovascular: RRR, no murmur, no edema Gastrointestinal (Abdomen): normal bowel sounds, soft, nontender, no hepatosplenomegaly Musculoskeletal: Extremities: no cyanosis and no clubbing Skin: no rashes, warm and dry Neurologic: moves all extremities; no focal motor deficits Speech / Cognition: normal speech Motor/Sensory: no tremor Psychiatric: A+Ox3, euthymic affect Results & Data Results & Data ([facility]) Vital Signs (Past 12 Hours) Vital Signs Temp Pulse Pulse Resp BP BP Pulse Ox 06/01/20 08:09 36.5 C 58 L 17 149/76 H 97 06/01/20 04:30 36.5 C 49 L 17 117/67 98 06/01/20 02:09 37.2 C 49 L 16 97 06/01/20 00:00 49 L 05/31/20 23:42 36.4 C L 51 L 16 181/74 H 100 (1) Syncope Syncope type: unspecified Qualified Code(s): R55 - Syncope and collapse (2) Atrial fibrillation Atrial fibrillation type: paroxysmal Qualified Code(s): I48.0 - Paroxysmal atrial fibrillation (3) Hypertension Hypertension type: essential hypertension Qualified Code(s): I10 - Essential (primary) hypertension (4) CAD (coronary artery disease) Coronary Disease-Associated Artery/Lesion type: bypass graft [place] vs. transplanted heart: [place] heart Associated angina: angina presence unspecified Qualified Code(s): I25.810 - Atherosclerosis of coronary artery bypass graft(s) without angina pectoris
--- NOTE | 2020-06-01 11:54 | Cardiology Consultation ---
Date of Consultation June 01, 2020 Assessment & Plan (1) Syncope: While the patient uses the term "syncope", I do not believe he is actually lost consciousness since his last admission. Is not clear to what he is referring when he uses the term, but when asked on several different occasions if he lost consciousness or "passed out" he apparently has not. I do not believe we have any more information regarding his symptoms than we did during his last admission. I do suspect he has some element of symptomatic bradycardia, possibly conversion pauses from atrial fibrillation, but this has not been documented. Given his history of coronary disease and reported cardiac arrest previously would seem reasonable to better define any arrhythmia associated with his symptoms. Given the difficulties associated with a wearable monitor at the facility, I suggested an implantable device. He seems agreeable we will proceed today. Given his history of coronary disease, prior CA and reported cardiac arrest as well as atrial fibrillation would seem reasonable to continue him on some beta- macy. I think he could continue on his current dose of metoprolol until we have evidence of symptoms associated with his bradycardia. In that setting he would likely need a pacemaker in any event. (2) Atrial fibrillation: He appears to have a long history of atrial fibrillation. No documented atrial fibrillation since we have been seeing him. It is possible that the "fluttering" that he describes as atrial fibrillation and that the symptoms are either associated with A. fib or possibly some conversion pauses afterwards. However, in the absence of true documentation I think we cannot recommend definitive therapy. He should continue on his Xarelto indefinitely. (3) CAD (coronary artery disease): He has a long history of coronary artery disease in both percutaneous and surgical revascularization. His symptoms are not suggestive of coronary insufficiency or angina. It seems he was given some nitroglycerin yesterday likely due to the chest discomfort he described with his palpitations. However, I do not believe this was an ischemic event. I do not believe he requires any additional ischemic evaluation. Cardiac biomarkers been negative. He should continue on aggressive secondary prevention. This includes aspirin, metoprolol and high-dose atorvastatin. He cannot recall any adverse effects associated with statin therapy and this should be reinitiated. Atorvastatin 80 will be recommended. History of Present Illness Reason for Consultation: syncope Requesting Physician: Renaldo Attending Physician: Huber Moreno DO History of Present Illness The patient is a 54-year-old gentleman known to me from a prior admission who has a history of coronary artery disease, surgical revascularization, atrial fibrillation, bradycardia, prior CA and syncope. he is currently incarcerated. During his last admission there was some concern about bradycardia. He ap parently had had a witnessed episode of syncope. However, no definite mechanism was identified during his admission. The patient was returned to his facility where he was placed in the "hole". Apparently this was both for quarantine as well as video monitoring. Patient states that yesterday he noticed a "fluttering" in his chest. He then developed symptoms of "hypertension". The symptoms were poorly characterized by the patient. He was brought to the [facility] and given nitroglycerin. It seems he was given nitroglycerin due to some chest discomfort that he associated with a "fluttering". He did use the term "syncope" when describing his episode yesterday. However, when questioned on several occasions regarding loss of consciousness or "passing out" he answered in the negative. In fact, he reportedly has not passed out or lost consciousness since his discharge several days ago. He continues to have some episodes of dizziness. The patient did obtain an event monitor. However, he has not been wearing the monitor for a couple of days. According to the patient they were not able to obtain the appropriate adhesive leads. Allergies Allergy/AdvReac Type Severity Reaction Status Date / Time No Known Allergies Allergy Unverified 05/22/20 11:23 Home Medications Home Medications Medication Instructions Recorded Confirmed Type Xarelto 20 mg PO QAM 05/22/20 05/31/20 History albuterol sulfate [Ventolin HFA] 2 puff INHALATION QID PRN 05/22/20 05/31/20 History aspirin 81 mg PO QAM 05/22/20 05/31/20 History furosemide [Lasix] 20 mg PO QAM 05/22/20 05/31/20 History lisinopril 2.5 mg PO QAM 05/22/20 05/31/20 History potassium chloride 20 meq PO DAILY 05/22/20 05/31/20 History magnesium 400 mg PO DAILY 30 Days #60 tab 05/25/20 05/31/20 Rx metoprolol tartrate 25 mg PO BID 30 Days #60 tab 05/25/20 05/31/20 Rx naproxen sodium 375 mg PO BID PRN 05/31/20 05/31/20 History Patient History Medical History Atrial fibrillation Degenerative joint disease (DJD) of lumbar spine History of cardiac arrest 2006 History of heart attack x 5; 2006 s/p 2 stents; 2006 (2 weeks after stents); 2008, 2011, 2019? History of pulmonary embolus (PE) Hypertension Syncope Surgical History H/O maze procedure Sep 2019 Hx of CABG 4-vessel; [place]; Sep 2019 Family History Mother Coronary heart disease Father Hx of CABG Brother Coronary heart disease Social History Smoking Status: Former smoker Tobacco Type: Cigarettes packs per day: 1; Second Hand Exposure: No; Hx Alcohol Use: Yes Hx Substance Use: Yes Non-Prescribed Medications: Amphetamines Substance Use Type Other:: patient stated he did speed about a month ago Preferred Language: Swedish Communication Ability: Effective Pest Control Chemical Technician Required: No Beliefs That Will Affect Care: None Current Living Situation: Other Current Living Situation Comment: Detention Other Information That Helps Us Care for You: No Feels Safe at Home: Yes Safety Concerns: Feels Safe At This Time Assistive Devices: None Review of Systems Review of Systems: All systems reviewed & are unremarkable except as noted in HPI & below Physical Exam Physical Exam: The patient is alert and oriented. Mood and affect appeared normal. He answered all questions appropriately. HEENT: Pupils are equal and reactive to light and accommodation. Extraocular movements are intact. The sclerae are anicteric. Neuro: Cranial nerves intact Neck: Patient's neck is supple. He has palpable carotid pulses bilaterally without bruits on auscultation. There is no evidence of jugular venous distention. The thyroid is not enlarged. Lungs: Clear to auscultation bilaterally. He has good air movement without use of accessory muscles. No rales wheezes or rhonchi. Cardiac: Heart demonstrates a regular rate and rhythm although somewhat bradycardic. Normal S1 and S2. No murmurs on examination. Pulses: The patient has palpable radial pulses bilaterally that are equal in intensity Extremities: There was no evidence of hypoperfusion. There is no cyanosis or clubbing. There is no edema. Skin: I did not appreciate any rashes on examination today. Atrial fibrillation Results & Data ([facility]) Vital Signs (Past 12 Hours) Vital Signs Temp Pulse Pulse Resp BP BP Pulse Ox 06/01/20 08:09 36.5 C 58 L 17 149/76 H 97 06/01/20 04:30 36.5 C 49 L 17 117/67 98 06/01/20 02:09 37.2 C 49 L 16 97 06/01/20 00:00 49 L Laboratory Results Abnormal Lab Results 05/31/20 05/31/20 05/31/20 20:31 20:31 20:31 WBC 8.60 RBC 4.43 L Hgb 14.0 Hct 42.0 MCV 94.8 MCH 31.6 MCHC 33.3 RDW Std Deviation 43.5 RDW Coeff of Katherine 12.5 Plt Count 358 MPV 9.4 Immature Gran % (Auto) 0.1 Neut % (Auto) 60.8 Lymph % (Auto) 29.0 [place] % (Auto) 7.9 Eos % (Auto) 1.7 Baso % (Auto) 0.5 Neut # (Auto) 5.23 Lymph # (Auto) 2.49 [place] # (Auto) 0.68 H Eos # (Auto) 0.15 Baso # (Auto) 0.04 Immature Gran # (Auto) 0.01 PT 13.0 H INR 1.2 H APTT 32.6 H PTT Ratio 1.2 Sodium 142 Potassium 4.0 Chloride 108 H Carbon Dioxide 30 Anion Gap 4.0 BUN 14 Creatinine 0.97 Est Cr Clr Drug Dosing 114.2 Est GFR ( Amer) 101.4 Est GFR (Non-Af Amer) 87.5 BUN/Creatinine Ratio 14.5 Glucose 98 Calcium 9.2 Phosphorus Magnesium Total Bilirubin 0.2 AST 15 ALT 27 Alkaline Phosphatase 101 Troponin I < 0.015 Total Protein 6.8 Albumin 3.6 Globulin 3.2 Albumin/Globulin Ratio 1.1 Lipase 88 06/01/20 06/01/20 06/01/20 05:48 05:48 05:48 WBC 6.15 RBC 4.60 L Hgb 14.2 Hct 43.2 MCV 93.9 MCH 30.9 MCHC 32.9 RDW Std Deviation 43.1 RDW Coeff of Katherine 12.6 Plt Count 334 MPV 9.5 Immature Gran % (Auto) 0.2 Neut % (Auto) 60.1 Lymph % (Auto) 29.1 [place] % (Auto) 8.0 Eos % (Auto) 2.1 Baso % (Auto) 0.5 Neut # (Auto) 3.70 Lymph # (Auto) 1.79 [place] # (Auto) 0.49 Eos # (Auto) 0.13 Baso # (Auto) 0.03 Immature Gran # (Auto) 0.01 PT 12.2 H INR 1.2 H APTT 30.4 PTT Ratio 1.1 Sodium 141 Potassium 3.8 Chloride 109 H Carbon Dioxide 28 Anion Gap 4.0 BUN 13 Creatinine 0.90 Est Cr Clr Drug Dosing 119.7 Est GFR ( Amer) 111.0 Est GFR (Non-Af Amer) 95.8 BUN/Creatinine Ratio 14.3 Glucose 90 Calcium 9.2 Phosphorus 3.7 Magnesium 2.1 Total Bilirubin AST ALT Alkaline Phosphatase Troponin I < 0.015 Total Protein Albumin 3.3 L Globulin Albumin/Globulin Ratio Lipase Diagnostic Findings Echocardiogram performed today revealed mild LVH with normal LV systolic function. Ejection fraction 60 65%. No significant valvular heart disease Carotid duplex was obtained previously revealed some mild carotid plaque. No obstructive disease Chest x-ray obtained at the time admission which did not reveal any acute cardiopulmonary process Brain MRI obtained during his last admission did not reveal any acute or chronic process ECG Additional Comments: EKG demonstrated sinus bradycardia without evidence of prior infarct PG Care Time/CCT Total # of Minutes Spent Total Time Spent with Patient: Total time spent is greater than 50% in coordination of care (as documented) at patient's floor/unit and/or counseling patient: Coding Level of Care Code 30644 Office/OBS Consult Lvl 4 Diagnoses Syncope R55 Syncope type: unspecified Atrial fibrillation I48.0 Atrial fibrillation type: paroxysmal CAD (coronary artery disease) I25.810 Coronary Disease-Associated Artery/Lesion type: bypass graft [place] vs. transplanted heart: [place] heart Associated angina: angina presence unspecified (1) Syncope Syncope type: unspecified Qualified Code(s): R55 - Syncope and collapse (2) Atrial fibrillation Atrial fibrillation type: paroxysmal Qualified Code(s): I48.0 - Paroxysmal atrial fibrillation (3) CAD (coronary artery disease) Coronary Disease-Associated Artery/Lesion type: bypass graft [place] vs. transplanted heart: [place] heart Associated angina: angina presence unspecified Qualified Code(s): I25.810 - Atherosclerosis of coronary artery bypass graft(s) without angina pectoris
--- NOTE | 2020-06-01 12:05 | Electrophysiology Report ---
Date of Service June 01, 2020 Electrophysiology Procedure Electrophysiology Procedure Report The procedure performed: Implantation of patient activated loop recorder Staff creative/art director: Clement Omer MD Indication: [] Procedure in detail: The patient was informed of the risks benefits and alternatives to the intended procedure. They understood such and wished to proceed. The patient was taken to the electrophysiology suite where the upper chest area was prepped and draped in the usual sterile fashion. An area left lateral to the sternum in the 4th intercostal space was subsequently anesthetized using subcutaneous administration of lidocaine solution. A small incision was made at this site and implantation of the loop recorder was accomplished using a proprietary implantation tool. The small incision was subsequently closed using a single 4 0 Vicryl suture. Steri-Strips and a sterile dressing were then applied. The patient tolerated the procedure well. There were no immediate complications. The device was tested noninvasively prior to conclusion of the procedure. Equipment used: Patient activated loop recorder: [employer]. Model number [id number]. Serial number [id number] Electrophysiology codes Implantable Monitors Procedure 1: Implantable Monitors: [id number] Cardiac event recorder evaluation
[2020-06-01] MEDS ORDERED: ATORVASTATIN 40 MG TAB PO SCH (13:45)
--- NOTE | 2020-06-01 14:28 | Discharge Summary ---
Date of Service June 01, 2020 Admission HPI Per Admitting Provider The patient is a 54-year-old male resident of [facility], with a past medical history including CAD, PE, CABG, cardiac arrest, DJD of lumbar spine, syncope, history of Maze procedure, paroxysmal atrial fibrillation, bradycardia, tachybradycardia syndrome, hypertension, and history of VT. He was most recently admitted from 05/22-05/25/2020 for syncopal episodes, and at that time had his metoprolol tartrate cut in half to 25 mg p.o. twice daily, with likely need for pacer placement. He presents to the emergency department tonight with similar complaints. Admission Exam Per Admitting Provider The patient is awake, alert and oriented 3, well developed and well nourished, normocephalic and atraumatic, lying in bed and in no acute distress. HEENT--PERRL, EOMI, mucous membranes and oropharynx normal. Neck--supple. No JVD. No bruits. Thyroid normal, trachea midline, no adenopathy. Heart--normal S1 and S2. No murmurs, rubs or gallops. Lungs--clear bilaterally, no respiratory distress, no accessory muscle use. Abdomen--normal bowel sounds and soft. Nontender. Nondistended. Extremities--no cyanosis or clubbing. No edema. Dermatologic--normal skin turgor, normal color, no abnormal lymph nodes, no rash. Neurologic--cranial nerves II through XII grossly intact. Rheumatologic--normal range of motion. Psychiatric--normal affect. Principal Diagnosis bradycardia dizziness Discharge Exam Constitutional WD/WN, vitals as above Neck normal visual inspection Respiratory normal respiratory effort, lungs clear to auscultation Cardiovascular RRR, no murmur, no edema Gastrointestinal (Abdomen) normal bowel sounds, soft, nontender, no hepatosplenomegaly Musculoskeletal Extremities: no cyanosis and no clubbing Skin no rashes, warm and dry Neurologic moves all extremities; no focal motor deficits Psychiatric A+Ox3, euthymic affect Discharge Data Allergies Allergy/AdvReac Type Severity Reaction Status Date / Time No Known Allergies Allergy Unverified 05/22/20 11:23 Consultations 05/31/20 22:29 ED Decision to Admit Stat 06/01/20 02:09 Consult Cardiology Routine Consult Case Management - Discharge Planning Routine Procedures Performed Operation Date: 06/01/20 12:00 Actual Procedures p Implant Cardiac Event Recorder(Left) - Alexx Omer MD Ordered Studies 06/01/20 11:53 CL Cath Imgs for PACS use only Stat Hospital Course (1) Syncope: 54 yo M PMHx CAD s/p CABG, PE on Xarelto therapy, paroxysmal atrial fibrillation, bradycardia, HTN admitted for continued episodes of pre-syncope at correctional facility. Dizziness/pre-syncope in patient with AFib and bradycardia: - Last admitted 05/22-05/25 for similar symptoms, at that time metoprolol dosing was decreased from 50mg BID to 25mg BID. - Patient returns with similar symptoms, though with no kadi episodes of passing out. - uncertain etiology with potential sources being: tachy-rosario vs orthostatic hypotension vs neurologic component vs. somatization. - Brain MRI w/ & w/o performed last admission which demonstrated: 1. No acute intracranial abnormality, specifically there is no evidence of acute or subacute infarct. 2. No abnormal enhancement. 3. Minimal scattered T2/FLAIR hyperintensities within the subcortical white matter of the bilateral cerebral hemispheres are suggestive of early chronic microvascular ischemic disease versus gliosis from chronic migraines. - sinus bradycardia on EKG at admission, as well as on telemetry, with HR range from 37-58. - Patient was without symptoms while admitted. - Cardiology consulted and appreciate recommendations: - Loop recorder placed, though patient's history is nonspecific and still u nclear if cardiac in origin. Continue metoprolol tartrate at 25mg BID and follow up in 1-2 weeks to correlate symptoms with loop recorder. CAD/HTN/AFib: - Continue home Xarelto, metoprolol, aspirin, lisinopril. - This admission started patient on Lipitor 80mg daily for ACS secondary prevention. ? Hx vestibular migraine: - MRI last admission as above. - Continue magnesium per previous Neuro recommendations for prophylaxis. Total Time Total Time Spent Total Time Spent (In Minutes): <30 Discharge Plan Discharge Items Patient Disposition: [facility] Reason For Visit: SYNCOPE, TACHYBRADYSYNDROME, BRADYCARDIA Discharge Diagnosis: bradycardia dizziness Activity: Per Instructions section Non-emergency contact: Primary Care Provider and Freight Unloader Call non-emergency contact if: you have any medication questions, your symptoms worsen and your temperature is above 101 Follow-up/Referrals: Alexx Omer MD [Physician] - (1-2 weeks) [facility] [Primary Care Provider] - Diet: Heart Healthy Addtl Attending Provider Instructions: Mr Randhawa was admitted to the hospital for complaints of dizziness and possible syncopal symptoms. While here he was fitted with a loop recorder by Cardiology to better evaluate for heart arrhythmia and bradycardia during his symptomatic episodes. Cardiology recommended continuing all of the medications that the patient was on before admission; this includes his metoprolol 25 milligrams BID. He was also started on Lipitor 80mg daily for secondary ACS prevention. He should have follow up with Cardiology in 1-2 weeks. He is safe for discharge home. Pending Studies at Discharge: No Stand-Alone Forms: [facility] Skilled Items Patient informed of condition?: Yes Discharge Level of Care: Other Communicable Disease: No Discharge Prognosis: Stable Lines: None Urinary Catheter: No Medications and DC Order Prescriptions: New atorvastatin [Lipitor] 80 mg tablet 80 mg PO DAILY Qty: 30 RF: 0 Continued potassium chloride 10 mEq Tablet Extended Release 20 meq PO DAILY RF: 0 aspirin 81 mg Tablet,Delayed Release (Dr/Ec) 81 mg PO QAM RF: 0 furosemide [Lasix] 20 mg Tablet 20 mg PO QAM RF: 0 albuterol sulfate [Ventolin HFA] 90 mcg/actuation Hfa Aerosol Inhaler 2 puff INHALATION QID PRN (Reason: Shortness Of Breath) RF: 0 lisinopril 2.5 mg Tablet 2.5 mg PO QAM RF: 0 Xarelto 20 mg Tablet 20 mg PO QAM RF: 0 metoprolol tartrate 25 mg Tablet 25 mg PO BID 30 Days Qty: 60 RF: 0 magnesium 200 mg tablet 400 mg PO DAILY 30 Days Qty: 60 RF: 0 naproxen sodium 375 mg Tablet Extended Release 375 mg PO BID PRN (Reason: Pain) RF: 0 Discharge Orders: Discharge Order (Routine); Ordered 06/01/20 Ordered By: Yue Hopkins Admission Data Admit Date/Time: 06/01/20 11:28 Attending Provider: Huber Moreno Admit Provider: Sherwin Mejia Primary Care Provider: [facility] Other Providers: Sherwin Mejia ; Alexx Omer Other Interventions: Discharge Summary Assessment (RN) Last Done: 06/01/20 15:36 Supervising Physician Co-Signing Physician Notes I personally examined the patient and verified all chavez points of history and exam, discussed case, and agree with decision making with Dr More. feeling OK. ok w discharge. cardiology input appreciated vitals noted nad heent nc at mmm breathing unlabored no accessory muscles good effort skin no rashes no pallor or icterus neuro no focal deficits dizziness - loop recorder. stable for discharge. follow up as outpt. Resident Activity Tracking Resident Involvement: Resident Care Provided Care Provided: Adult Hospital Medicine
--- NOTE | 2020-06-01 17:32 | Billing Data ---
Date of Service June 01, 2020 Coding Level of Care Code D/C Day Management <30 mins
--- NOTE | 2020-06-01 23:34 | Electrocardiogram Report ---
Test Reason : Blood Pressure : / mmHG Vent. Rate : 050 BPM Atrial Rate : 050 BPM P-R Int : 144 ms QRS Dur : 086 ms QT Int : 444 ms P-R-T Axes : -27 043 025 degrees QTc Int : 404 ms Sinus bradycardia Otherwise normal ECG When compared with ECG of 24-MAY-2020 07:21, No significant change Confirmed by Gabe Beatty ([id number]) on 06/01/2020 11:33:56 PM Referred By: [facility] Confirmed By:Gabe Beatty
--- NOTE | 2020-06-01 23:40 | Electrocardiogram Report ---
Test Reason : Blood Pressure : / mmHG Vent. Rate : 047 BPM Atrial Rate : 047 BPM P-R Int : 146 ms QRS Dur : 086 ms QT Int : 458 ms P-R-T Axes : 080 065 059 degrees QTc Int : 405 ms Sinus bradycardia Otherwise normal ECG When compared with ECG of 31-MAY-2020 20:23, Nonspecific T wave abnormality no longer evident in Inferior leads Confirmed by Gabe Beatty ([id number]) on 06/01/2020 11:40:04 PM Referred By: [facility] Confirmed By:Gabe Beatty
== END 2020-06-01 16:03 | DRG 262 ==
LOC: ED 20:14 → 2S 20:14 → SUATTDRO 22:44 → 2S 23:11